=== PATIENT | female | born 1980 | race African-American/Black ===

== ENCOUNTER 2016-11-16 10:23 | Emergency (ER) | payer OTHER ==
[2016-11-16] MEDS ORDERED: NS 0.9% 1000 ML* 1,000 ML IV ONE (11:21)
[2016-11-16] MEDS ORDERED: Ondansetron INJ* 2 MG/ML VIAL IV ONE (11:21)
[2016-11-16 11:47] LABS: Hematocrit 38 % (35-47); Hemoglobin 12.1 g/dl (12.0-16.0); Mean Corpuscular HGB Conc 32 g/dl (31-36); Mean Corpuscular Hemoglobin 27 pg (27-31); Mean Corpuscular Volume 85 fL (80-97); Mean Platelet Volume 7 um3 (7.4-10.4); Red Blood Count 4.44 10^6/ul (4.0-5.4); Red Cell Distribution Width 16 % (10.5-15); White Blood Count 7.6 10^3/ul (3.5-10.8)
[2016-11-16] MEDS ORDERED: oxyCODONE/Acetamin 5/325 MG* TAB PO ONE (11:58)
[2016-11-16 12:10] LABS: Albumin 3.9 g/dL (3.2-5.2); BUN/Creatinine Ratio 16.4 (8-20); Calcium 9.1 mg/dL (8.6-10.3); EGFR African American 161.8 (>60); EGFR Non-African American 125.8 (>60); Potassium 3.8 mmol/L (3.5-5.0); Total Bilirubin 0.3 mg/dL (0.2-1.0); Total Protein 6.9 g/dL (6.4-8.9)
--- NOTE | 2016-11-16 13:15 | RAD ---
Indication: RIGHT upper quadrant pain. Last ate 2 hours ago. Comparison: December 27, 2007 CT. Technique: RIGHT upper quadrant ultrasound. Report: Appropriate direction flow documented in the portal and hepatic veins. 14.9 cm cephalocaudal liver is mildly echogenic consistent with fatty infiltration and corresponding with previous CT finding. No focal hepatic lesions or biliary dilatation. 3.9 mm common bile duct. Suboptimal distention of the gallbladder corresponding with insufficient fasting prior to the exam which likely accounts for mild prominence of the gallbladder wall measuring up to 3.7 mm. Tenderness noted when scanning over the gallbladder fossa. No conspicuous gallbladder stones or pericholecystic fluid. The pancreatic tail is partially obscured due to bowel gas with the visualized pancreas unremarkable. Negative for ascites. Unremarkable 10.7 cm RIGHT kidney. IMPRESSION: 1. Incomplete distention of the gallbladder limits assessment. The patient is tender when scanning over the gallbladder fossa. No conspicuous gallbladder stones or pericholecystic fluid. Correlate with clinical assessment and consider repeat ultrasound after sufficient fasting. 2. Fatty infiltration of the liver.
[2016-11-16] MEDS ORDERED: Lidocaine 2% VISCOUS* 15 ML UDC PO ONE (13:32)
[2016-11-16 13:42] LABS: Urine Bilirubin Negative (Negative); Urine Glucose Negative (Negative); Urine Nitrite Negative (Negative)
[2016-11-16] MEDS ORDERED: Al Hydrox/Mg Hydrox/Simet LIQ* 30 ML UDC ONE (14:30)
[2016-11-16] MEDS ORDERED: Al Hydrox/Mg Hydrox/Simet LIQ* 30 ML UDC PO ONE (14:31)
[2016-11-16] MEDS ORDERED: Metoclopramide IV* 5 MG/ML 2 ML VIAL IV SLOW PU ONE (15:09)
[2016-11-16 17:40] VITALS: BP 99/67
--- NOTE | 2016-12-01 09:26 | ED ---
papa Murcia Timothy, scribed for Davon Kelley MD on 11/16/16 at 1158 . Abdominal Pain/Female - HPI Summary HPI Summary: Darcy Lawson is a 36 yo female presenting to [facility] with 4/10 RUQ abd pain for the past 2 weeks accompanied by nausea and hematemesis as of 11/15/16. Pt is 10 weeks , and prior to this episode has had nausea but no vomiting. She denies black stool or diarrhea. She has chills, but denies fever. Her MHx includes multiple miscarriages, labor, preclampsia, kidney stones, UTI, panic disorder, depression, anxiety, tobacco use. Her OB is in [place]. - History of Current Complaint Chief Complaint: EDNauseaVomitDiarrh Stated Complaint: THROWING UP BLOOD, STOMACH PAIN Time Seen by Provider: 11/16/16 11:15 Hx Obtained From: Patient Hx Last Menstrual Period: 06/28 ?: Yes Onset/Duration: Sudden Onset, Gradual Onset, Lasting Weeks, Still Present Timing: Intermittent Episode Lasting Severity Initially: Moderate Severity Currently: Moderate Pain Intensity: 8 Pain Scale Used: 0-10 Numeric Location: Discrete At: RUQ Radiates: No Aggravating Factor(s): Nothing Alleviating Factor(s): Nothing Associated Signs and Symptoms: Positive: Nausea, Vomiting - hematemesis. Negative: Fever, Diarrhea Allergies/Adverse Reactions: Allergies Allergy/AdvReac Type Severity Reaction Status Date / Time No Known Allergies Allergy Verified 03/15/16 20:57 PMH/Surg Hx/FS Hx/Imm Hx Endocrine/Hematology History: Reports: Hx Anemia - A TEENAGER Denies: Hx Diabetes, Hx Thyroid Disease Cardiovascular History: Denies: Hx Hypertension Respiratory History: Denies: Hx Asthma, Hx Chronic Obstructive Pulmonary Disease (COPD) GI History: Denies: Hx Ulcer History: Reports: Hx Kidney Infection, Hx Kidney Stones - HX IN THE PAST, Other Problems/Disorders - HX OF UTI'S IN THE PAST, MOST RECENT ONE , FINISHED MEDICATION ON 10/16/2014 Sensory History: Reports: Hx Contacts or Glasses - GLASSES, BUT DOES NOT WEAR Denies: Hx Hearing Aid Opthamlomology History: Reports: Hx Contacts or Glasses - GLASSES, BUT DOES NOT WEAR Psychiatric History: Reports: Hx Anxiety, Hx Depression, Hx Panic Disorder, Other Psychiatric Issues/Disorders - depression and suicidal ideation Denies: Hx Eating Disorder, Hx of Violent Episodes Against Others - Cancer History Hx Chemotherapy: No Hx Radiation Therapy: No - Surgical History Surgery Procedure, Year, and Place: 1998 & 2002 DILATION CURETTAGE, [facility] Hx Anesthesia Reactions: Yes - LOCAL - Immunization History Date of Tetanus Vaccine: Unsure Date of Influenza Vaccine: no Infectious Disease History: No Infectious Disease History: Denies: Hx Hepatitis, Hx Human Immunodeficiency Virus (HIV), History Other Infectious Disease, Traveled Outside the [place] in Last 30 Days - Family History Known Family History: Positive: Other - Bipolar disorder and anxiety - biological relations, breast CA Family History: Other is unknown - patient is adopted - Social History Alcohol Use: Rare Substance Use Type: Reports: None Substance Use Comment - Amount & Last Used: last night "smoked my brains out" to cope Hx Tobacco Use: Yes Smoking Status (MU): Heavy Every Day Tobacco Smoker Type: Cigarettes Amount Used/How Often: 1/2 ppd Length of Time of Smoking/Using Tobacco: 17 years Have You Smoked in the Last Year: Yes Review of Systems Positive: Fever. Negative: Chills Eyes: Negative Negative: Erythema ENT: Negative Negative: Sore Throat Cardiovascular: Negative Negative: Chest Pain Respiratory: Negative Negative: Shortness Of Breath, Cough Positive: Abdominal Pain, Vomiting, Nausea. Negative: Diarrhea Genitourinary: Negative Negative: dysuria, hematuria Musculoskeletal: Negative Negative: Myalgia Skin: Negative Negative: Rash Neurological: Negative - no dizziness Psychological: Normal All Other Systems Reviewed And Are Negative: Yes Physical Exam - Summary Physical Exam Summary: Constitutional: Well-developed, Well-nourished, Alert. (-) Distressed Skin: Warm, Dry HENT: Normocephalic; Atraumatic Eyes: Conjunctiva normal Neck: Musculoskeletal ROM normal neck. (-) JVD, (-) Stridor, (-) Tracheal deviation Cardio: Rhythm regular, rate normal, Heart sounds normal; Intact distal pulses; The pedal pulses are 2+ and symmetric. Radial pulses are 2+ and symmetric. (-) Murmur Pulmonary/Chest wall: Effort normal. (-) Respiratory distress, (-) Wheezes, (-) Rales Abd: Soft, (+) RUQ Tenderness, (-) Distension, (-) Guarding, (-) Rebound Musculoskeletal: (-) Edema Lymph: (-) Cervical adenopathy Neuro: Alert, Oriented x3 Psych: Mood and affect Normal Triage Information Reviewed: Yes Vital Signs On Initial Exam: Initial Vitals Temp Pulse Resp BP Pulse Ox 97.4 F 102 18 124/81 100 11/16/16 10:32 11/16/16 10:32 11/16/16 10:32 11/16/16 10:32 11/16/16 10:32 Vital Signs Reviewed: Yes - Russell Coma Scale Coma Scale Total: 15 Diagnostics - Vital Signs Vital Signs Temp Pulse Resp BP Pulse Ox 11/16/16 11:16 97.4 F 102 18 124/81 100 11/16/16 10:32 97.4 F 102 18 124/81 100 - Laboratory Lab Results: Lab Results 11/16/16 Range/Units 11:40 WBC 7.6 (3.5-10.8) 10^3/ul RBC 4.44 (4.0-5.4) 10^6/ul Hgb 12.1 (12.0-16.0) g/dl Hct 38 (35-47) % MCV 85 (80-97) fL MCH 27 (27-31) pg MCHC 32 (31-36) g/dl RDW 16 H (10.5-15) % Plt Count 278 (150-450) 10^3/ul MPV 7 L (7.4-10.4) um3 Neut % (Auto) 73.6 (38-83) % Lymph % (Auto) 18.7 L (25-47) % Morrison % (Auto) 6.0 (1-9) % Eos % (Auto) 1.1 (0-6) % Baso % (Auto) 0.6 (0-2) % Absolute Neuts (auto) 5.6 (1.5-7.7) 10^3/ul Absolute Lymphs (auto) 1.4 (1.0-4.8) 10^3/ul Absolute Monos (auto) 0.5 (0-0.8) 10^3/ul Absolute Eos (auto) 0.1 (0-0.6) 10^3/ul Absolute Basos (auto) 0 (0-0.2) 10^3/ul Absolute Nucleated RBC 0 10^3/ul Nucleated RBC % 0 Result Diagrams: 11/16/16 11:40 11/16/16 11:40 Lab Statement: Any lab studies that have been ordered have been reviewed, and results considered in the medical decision making process. - Ultrasound No standard instances Ultrasound Interpretation: Positive (See Comments) - IMPRESSION: 1. Incomplete distention of the gallbladder limits assessment. The patient is tender when scanning over the gallbladder fossa. No conspicuous gallbladder stones or pericholecystic fluid. Correlate with clinical assessment and consider repeat ultrasound after sufficient fasting. 2. Fatty infiltration of the liver. Ultrasound Interpretation Completed By: Radiologist - abd Re-Evaluation - Re-Evaluation First Eval Re-Evaluation Time: 15:10 Change: Unchanged Comment: Pt is informed of lab and imaging study results. 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 Discussed current course of Tx, Pt is agreeable. Second Eval Re-Evaluation Time: 17:00 Change: Unchanged Comment: Pt has not had any PO intake since administration of the reglan. Third Eval Re-Evaluation Time: 17:28 Change: Improved Comment: Pt is able to tolerate olga damon PO. She is agreeable to be discharged. Abdominal Pain Fem Course/Dx - Course Course Of Treatment: Darcy Lawson is a 36 yo female presenting to [facility] with 2 weeks of RUQ abd pain and nausea, with hematemesis as of 11/15/16. She is 10 weeks . In the ED she received zofran and reglan for her nausea, oxycodone for pain management, and IV fluids, as well as lidocaine in a GI cocktail and Maalox plus. Her abd US suggests limite assessment due to incomplete distension of the gallbladder, but no obvious gallbladder stones. There is fatty infiltration of the liver. After clinical assessment and review of her lab and imaging studies, she will be discharged home with gastritis, biliary colic, and vomiting with appropriate instructions. - Diagnoses Differential Diagnosis: Positive: Gall Bladder Disease, Other - biliary colic Provider Diagnoses: Gastritis, Biliary colic, Vomiting - Provider Notifications Discussed Care Of Patient With: 1519 - Dr. Paredes (surgery) - discussed Pt condition, as well as possibility of biliary colic. After review, he recommended symtpomatic management with follow up in the office. Discharge - Discharge Plan Condition: Stable Disposition: HOME Patient Education Materials: Gastritis (ED), Biliary Colic (ED), Acute Nausea and Vomiting (ED) Referrals: Sudhakar Vargas MD [Primary Care Provider] - 2 Days Terence Paredes MD [Medical Doctor] - 2 Days [facility] [Provider Group] - 2 Days Additional Instructions: Please follow up with Ashwini Alston [facility], and your primary care physician regarding your visit to the emergency department today. Return to the emergency department with any new or recurring symptoms. The documentation as recorded by the papa gray Timothy accurately reflects the service I personally performed and the decisions made by , Davon Kelley MD.
== END 2016-11-16 17:39 | disposition home or self-care (01) ==
LOC: ED 10:23
DX: O26.891 Other specified pregnancy related conditions, first trimester (principal); K29.70 Gastritis, unspecified, without bleeding; K80.50 Calculus of bile duct without cholangitis or cholecystitis without obstruction; R10.11 Right upper quadrant pain; R11.2 Nausea with vomiting, unspecified; F17.210 Nicotine dependence, cigarettes, uncomplicated
CPT/HCPCS: 36415; 76705; 80053; 81003; 85025; 96374; 99283; A9270-GY; J2405

== ENCOUNTER 2017-03-29 18:57 | Emergency (ER) | payer OTHER ==
--- NOTE | 2017-03-29 21:00 | RAD ---
INDICATION: Pain and swelling. COMPARISON: None TECHNIQUE: Duplex interrogation of the Lowerextremity was performed. FINDINGS: Deep veins: The common femoral, great saphenous, profunda femoris, proximal, mid, and distal deep femoral, popliteal, posterior tibial, and peroneal veins are patent. There is normal compressibility, augmentation, and phasic flow. Superficial veins: There are no findings of superficial thrombophlebitis. Popliteal fossa:There is no evidence of a popliteal cyst. Soft tissues:There are no soft tissue abnormalities. IMPRESSION: Normal examination. No evidence of deep venous thrombosis
[2017-03-29 21:18] VITALS: BP 149/92
--- NOTE | 2017-03-30 01:08 | ED ---
Narciso Murcia Angela, scribed for Nevin Fan MD on 03/29/17 at 2202 . Lower Extremity - HPI Summary HPI Summary: Pt is a 36 y/o female, currently 29 weeks , presenting to [facility] c/o sudden onset of left leg swelling this afternoon. Pt reports that she was in an open house for her daughter's school when she noticed swelling on her left leg. She states that this is her fifth . Pt notes that she has had this swelling before with prior pregnancies but not as bad as today. She reports that her leg has alleviated a little since onset. She is a current smoker. Pt is due in June. Her PCP is Dr. Vargas and she sees an OBGYN in [place]. 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 Negative: Redness, Bruising , Fever, Weakness, Dizziness Aggravating Factor(s): Nothing Alleviating Factor(s): Nothing - Allergies/Home Medications Allergies/Adverse Reactions: Allergies Allergy/AdvReac Type Severity Reaction Status Date / Time No Known Allergies Allergy Verified 03/15/16 20:57 PMH/Surg Hx/FS Hx/Imm Hx Endocrine/Hematology History: Reports: Hx Anemia - A TEENAGER Denies: Hx Diabetes, Hx Thyroid Disease Cardiovascular History: Denies: Hx Hypertension Respiratory History: Denies: Hx Asthma, Hx Chronic Obstructive Pulmonary Disease (COPD) GI History: Denies: Hx Ulcer History: Reports: Hx Kidney Infection, Hx Kidney Stones - HX IN THE PAST, Other Problems/Disorders - HX OF UTI'S IN THE PAST, MOST RECENT ONE , FINISHED MEDICATION ON 10/16/2014 Sensory History: Reports: Hx Contacts or Glasses - GLASSES, BUT DOES NOT WEAR Denies: Hx Hearing Aid Opthamlomology History: Reports: Hx Contacts or Glasses - GLASSES, BUT DOES NOT WEAR Psychiatric History: Reports: Hx Anxiety, Hx Depression, Hx Panic Disorder, Other Psychiatric Issues/Disorders - depression and suicidal ideation Denies: Hx Eating Disorder, Hx of Violent Episodes Against Others - Cancer History Hx Chemotherapy: No Hx Radiation Therapy: No - Surgical History Surgery Procedure, Year, and Place: 1998 & 2002 DILATION CURETTAGE, [facility] Hx Anesthesia Reactions: Yes - LOCAL - Immunization History Date of Tetanus Vaccine: Unsure Date of Influenza Vaccine: no Infectious Disease History: No Infectious Disease History: Denies: Hx Hepatitis, Hx Human Immunodeficiency Virus (HIV), History Other Infectious Disease, Traveled Outside the [place] in Last 30 Days - Family History Known Family History: Positive: Diabetes - mother, Other - Bipolar disorder and anxiety - biological relations, breast [place] Family History: Other is unknown - patient is adopted - Social History Alcohol Use: Rare Substance Use Type: Reports: None Substance Use Comment - Amount & Last Used: last night "smoked my brains out" to cope Hx Tobacco Use: Yes Smoking Status (MU): Heavy Every Day Tobacco Smoker Type: Cigarettes Amount Used/How Often: 1/2 ppd Length of Time of Smoking/Using Tobacco: 17 years Have You Smoked in the Last Year: Yes Review of Systems Negative: Fever, Chills Eyes: Negative ENT: Negative Cardiovascular: Negative Negative: Shortness Of Breath, Cough Negative: Abdominal Pain, Vomiting, Diarrhea, Nausea Genitourinary: Negative Positive: Edema - left leg Neurological: Negative All Other Systems Reviewed And Are Negative: Yes Physical Exam Triage Information Reviewed: Yes Vital Signs On Initial Exam: Initial Vitals Temp Pulse Resp BP Pulse Ox 98.6 F 104 20 156/107 97 03/29/17 19:20 03/29/17 19:20 03/29/17 19:20 03/29/17 19:20 03/29/17 19:20 Vital Signs Reviewed: Yes Appearance: Positive: Well-Appearing, No Pain Distress Skin: Positive: Warm, Skin Color Reflects Adequate Perfusion, Dry Eyes: Positive: EOMI, MISHA ENT: Positive: Pharynx normal, TMs normal Neck: Positive: Supple, Nontender Respiratory/Lung Sounds: Positive: Clear to Auscultation, Breath Sounds Present. Negative: Rales, Rhonchi, Wheezes Cardiovascular: Positive: RRR. Negative: Murmur, Rub, Other - gallops Abdomen Description: Positive: Nontender, Soft, Other: - Pt is gravid. Negative : Distended, Guarding Bowel Sounds: Positive: Present Musculoskeletal: Positive: Strength/ROM Intact, Edema Left - normal pulse. Negative: Edema Right Neurological: Positive: Sensory/Motor Intact, Alert, Oriented to Person Place, Time, CN Intact II-III, Other - Pt is neurovascular intact Psychiatric: Positive: Affect/Mood Appropriate - Banks Coma Scale Coma Scale Total: 15 Diagnostics - Vital Signs Vital Signs Temp Pulse Resp BP Pulse Ox 03/29/17 21:16 98.5 F 98 16 149/92 98 03/29/17 19:23 98.6 F 104 20 156/107 97 03/29/17 19:20 98.6 F 104 20 156/107 97 - Laboratory Lab Statement: Any lab studies that have been ordered have been reviewed, and results considered in the medical decision making process. - Ultrasound No standard instances Ultrasound Interpretation: No Acute Changes - VL Lower Extremity Left IMPRESSION : Normal examination. No evidence of deep venous thrombosis. ED physician has reviewed this radiology report and agrees. Ultrasound Interpretation Completed By: Radiologist Lower Extremity Course/Dx - Course Course Of Treatment: 36 female 22 weeks with sudden onset of left leg swelling no sob or cp, with a neg doppler study, pt had full resolution of symptoms by the time she was evaluated and there was no erythema and she was neurovasculalry intact. It was discussed with pt that fetus likely put some pressure on the ivc which resulted in the edema - Diagnoses Provider Diagnoses: edema, now resolved Discharge - Discharge Plan Condition: Stable Disposition: HOME Patient Education Materials: Leg Edema (ED) Referrals: Sudhakar Vargas MD [Primary Care Provider] - The documentation as recorded by the Narciso gray Angela accurately reflects the service I personally performed and the decisions made by Meng allen Justine, MD.
== END 2017-03-29 22:16 | disposition home or self-care (01) ==
LOC: ED 18:57
DX: O12.03 Gestational edema, third trimester (principal); Z3A.29 29 weeks gestation of pregnancy; O99.333 Smoking (tobacco) complicating pregnancy, third trimester; F17.210 Nicotine dependence, cigarettes, uncomplicated
CPT/HCPCS: 99282

== ENCOUNTER → 2017-11-02 07:11 | Day surgery (SDC) | payer MEDICAID, OTHER ==
[~2017-11-02 07:11] MED LIST: Acetaminophen TAB* 325 MG PO PRN; Buffered Lidocaine 0.9% SYRIN* 5 ML/SYR SYRINGE INTRADERM ONE; Buffered Lidocaine 0.9% SYRIN* 5 ML/SYR SYRINGE ONE; Bupivacaine 0.25% SDV* 30 ML ONE; Famotidine IV* 10 MG/ML 2 ML (20 mg) IV ONE; HYDROmorphone INJ* 1 MG/ML CARPUJECT SYRINGE IV PRN; Ketorolac INJ* 30 MG/ML 1 ML VIAL ONE; Lidocaine 2% PF * 5 ML VIAL ONE; Midazolam* 1 MG/ML 2 ML VIAL (2 MG) ONE; Naloxone* 0.4 MG/ML 1 ML VIAL IV PRN; Ondansetron INJ* 2 MG/ML VIAL ONE; PROCHLORPERAZINE INJ 5 MG/ML 2 ML VIAL IV PRN; Propofol* 10 MG/ML 20 ML BTL IV PUSH ONE; Rocuronium* 10 MG/ML VIAL ONE; Scopolamine 1.5 mg* PATCH ONE; Scopolamine 1.5 mg* PATCH TRANSDERM PRN; Scopolamine PATCH Remove* 1 NOTE MISC PATCH OFF ONE; Sugammadex * 200 MG/2 ML VIAL IV PUSH ONE; fentaNYL* 50 MCG/ML 2 ML VIAL (100 MCG VIAL) IV PRN; fentaNYL* 50 MCG/ML 2 ML VIAL (100 MCG VIAL) ONE; oxyCODONE TAB* 5 MG TAB ONE; oxyCODONE/Acetamin 5/325 MG* TAB PO PRN
[2017-11-02] MEDS: oxyCODONE TAB* 5 MG TAB PO PRN ×2 (09:27→09:28)
[2017-11-02 10:12] VITALS: BP 151/94
--- NOTE | 2017-11-02 11:12 | OP ---
Amended report to enter date of operation. OPERATIVE REPORT: DATE OF OPERATION: 11/02/17 DATE OF : 82 SURGEON: Henry Soria MD SPEED BELT SANDER: None. ANESTHESIA: General endotracheal tube. PRE-OP DIAGNOSIS: Desires sterilization. POST-OP DIAGNOSIS: Desires sterilization. OPERATIVE PROCEDURE: Laparoscopic bilateral tubal ligation. ESTIMATED BLOOD LOSS: Minimal. SPECIMEN: None. FINDINGS: On exam under anesthesia, cervix, vagina, vulva appeared normal. On laparoscopy, anterior bladder flap appeared normal, the cul-de-sac was not well visualized. Both the right fallopian tube and ovary were free and mobile and appeared normal. Left fallopian tube was scarred to the cul-de-sac. Liver surface was smooth. DESCRIPTION OF PROCEDURE: The patient identified, procedure identified as laparoscopic bilateral tubal ligation.. The patient was taken to the operating room and prepped and draped in the usual fashion in the dorsal lithotomy position under general anesthesia. A small infraumbilical incision was made and Veress needle was inserted through this. The abdomen was insufflated to 50 mmHg. The Veress needle was removed and then trocar was inserted. Trocar was removed from the sheath and laparoscope was inserted. The above findings were noted. The second incision was made 2 cm above the pubic symphysis in the midline and a second trocar was inserted under direct visualization. The right fallopian tube was grasped in its midportion, followed out to its fimbriated ends and fulgurated x3. The same procedure was carried out on the left and the fimbriated ends could not be seen well, though adequate visualization of the fallopian tube over the ovary made identification reasonable. That side was cauterized closer to the uterus in order to avoid the bowel and the fimbria could not be totally visualized. Good hemostasis was verified. All instruments removed from the abdomen. The abdomen was deflated of CO2. The skin was closed using skin glue. The sponge and instrument were removed from the vagina. All sponge and instruments were correct and the patient returned to recovery room in stable condition. [id number]/CPS #: [id number] MTDD
== END | disposition home or self-care (01) ==
LOC: OR 07:11
PROVIDERS: ATTEND Obstetrics & Gynecology
DX: Z30.2 Encounter for sterilization (principal); F17.210 Nicotine dependence, cigarettes, uncomplicated; F41.8 Other specified anxiety disorders
CPT/HCPCS: 36415; 81025; 86703; A9270-GY; J1885; J2250; J2405; J2704; J3010

== ENCOUNTER 2018-01-17 23:36 | Emergency (ER) | payer OTHER ==
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
[2018-01-18 02:17] VITALS: BP 122/70
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
--- NOTE | 2018-01-18 07:30 | RAD ---
INDICATION: Consult. Possible chest injury. COMPARISON: None TECHNIQUE: Axial source images were obtained from the thoracic inlet to the hemidiaphragms. Coronal and sagittal reconstructed images were acquired. The visualized neck to include the thyroid appear normal. Chest wall: There are no acute abnormalities of the bony thorax or chest wall. There is no supraclavicular, infraclavicular, or axillary lymphadenopathy. Lungs : There are no pulmonary parenchymal masses or infiltrates. There is minor gravity dependent atelectasis. There is no pneumothorax. The pulmonary interstitium appears normal. There are no endobronchial lesions. Cardiomediastinal structures: The heart is normal in size. There is no pericardial effusion. There is no evidence of aortic aneurysm or dissection. There is no mediastinal hematoma. The pulmonary vessels appear normal. There is no mediastinal or hilar adenopathy. The esophagus appears normal. Pleura : There are no pleural-based masses or effusions. Other: There are no acute or significant CT findings of the visualized upper abdomen. IMPRESSION: NO CT EVIDENCE OF TRAUMATIC INJURY TO THE CHEST.
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
== END 2018-01-18 02:14 | disposition home or self-care (01) ==
LOC: ED 23:36
DX: S09.93XA Unspecified injury of face, initial encounter (principal); M54.2 Cervicalgia; R51 Headache; F17.210 Nicotine dependence, cigarettes, uncomplicated; R07.9 Chest pain, unspecified; R06.02 Shortness of breath; R07.81 Pleurodynia; Y09 Assault by unspecified means; Y92.9 Unspecified place or not applicable
CPT/HCPCS: 70486; 71250; 72125; 99282

== ENCOUNTER 2018-04-22 15:46 | Emergency (ER) | payer OTHER ==
[2018-04-22 16:11] VITALS: BP 135/87
--- NOTE | 2018-04-23 12:51 | UC ---
- Progress Note Progress Note: LWBS. NO IMAGING Discharge - Sign-Out/Discharge Documenting (check all that apply): Post-Discharge Follow Up All imaging exams completed and their final reports reviewed: No Studies - Discharge Plan Disposition: LEFT WITHOUT BEING SEEN Referrals: Sudhakar Vargas MD [Primary Care Provider] - - Billing Disposition and Condition Disposition: Left Without Being Seen
== END 2018-04-22 16:14 | disposition left against medical advice (07) ==
LOC: UCEAST 15:46
DX: J98.9 Respiratory disorder, unspecified (principal); Z53.21 Procedure and treatment not carried out due to patient leaving prior to being seen by health care provider

== ENCOUNTER 2018-10-22 10:12 | Emergency (ER) | payer OTHER ==
--- OUTSIDE RECORDS SUMMARY | 2018-10-22 10:20 | XMS REPORT | Continuity of Care Document ---
:1980 External Reference #:[id number] Author Name Henry Soria M.D. Address [address] [place] [address] Care Team Providers Name Role Phone Samantha Vargas M.D. Primary Care Physician Unavailable Payers Date Identification Numbers Payment Provider Subscriber Policy Number: [id number] [facility] Margret Fairchild PayID: [id number] [address] [address] [place] [address] Advance Directives Description No Information Available Problems Date Description Provider Status Onset: 08/21/2013 Depressive disorder Juany Cervantes CNM Active Onset: 08/21/2013 Anxiety state Juany Cervantes CNM Active Onset: 08/21/2013 Tobacco user Juany Cervantes CNM Active Family History Date Family Member(s) Observation Comments First Son A&W First Son ADHD (Attention Deficit/Hyperactivity Disorder) Second Son Hirshsprung's Disease From . Followed by Specialist in [place] Second Son ADHD (Attention Deficit/Hyperactivity Disorder) Third Son A&W Third Son ADHD (Attention Deficit/Hyperactivity Disorder) First Daughter A&W Second Daughter A&W Respiratory issues related to premature . 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 Cigarette Use Regularly smokes cigarettes Alcohol Denies alcohol use Tobacco Use Start: Unknown Patient is a current smoker, smokes every day Drug Use Denies drug use Smoking Status Reviewed: 08/28/18 Patient is a current smoker, smokes every day Daily Caffeine occ soda Exercise Type/Frequency Exercises sporadically Current Seat Belt/Car Seat Always uses a seat belt Currently Active The patient is currently sexually active Contraceptive Methods Current methods of control used include tubal ligation Allergies, Adverse Reactions, Alerts Description No Known Drug Allergies Medications Medication Date Status Form Strength Qnty SIG Indications Ordering Provider Norethindrone 10/10/ Active Tablets 5mg 60tabs 1 by Henry Rojas 2019 mouth Gelber, every day M.D. Lexapro / Active Tablets 20mg 1 po qd Unknown 0000 Adderall / Active Tablets 20mg 1 po bid Unknown 0000 Xanax / Active Tablets 1mg 1 po qd Unknown 0000 Oxycodone-Acetam 07/18/ Hx Tablets 5-325mg 10tabs 1 by [id number] Henry Ozuna inophen 2017 - mouth Gelber, 11/13/ q4hr M.D. 2017 Ibuprofen 07/18/ Hx Tablets 600mg 30tabs take one [email or web address] Henry Ozuna 2018 - tab by Gelber, 11/13/ mouth M.D. 2017 every 6 hours as needed pain Nuvaring 06/14/ Hx Ring 0.12-0.015 1units insert as Mahrijessica 2017 - mg/24HR directed Billy 11/13/ CNM 2018 Diclegis 11/15/ Hx Tablets DR 10-10mg 60tabs take 2 Michelle 2017 - tablets Rosalind 11/15/ by mouth LM 2016 at bedtime, may add 1 tablet in morning Metoclopramide 11/15/ Hx Tablets 10mg 30tabs one Michelle HCL 2016 - tablet by Rosalind, 06/14/ mouth LM 2016 every 8 hours as needed for nausea. Aspirin Adult 10/20/ Hx Tablets DR 81mg 30tabs 1 tablet Becky Low Strength 2017 - po daily Almas, 06/14/ CNM 2016 Zatean-PN Dha 10/20/ Hx Capsules 27-0.6-0.4 30caps 1 by Becky 2017 - -300mg mouth Alams, 06/14/ every day CNM 2016 Escitalopram 10/17/ Hx Tablets 5mg 14tabs 1 PO qd Karen Oxalate 2013 - Matheus, 03/16/ 2016 Ciprofloxacin 10/17/ Hx Tablets 500mg 14tabs 1 po bid Mahrie HCL 2014 - for 7 Cervantes, 03/16/ days CNM 2015 Doxylamine 09/17/ Hx Powder Henry A. Succinate 2013 - Gelber, M.D. 2013 Unisom 09/17/ Hx Tablets 25mg Henry A. 2013 - Gelber, M.D. 2013 Doxylamine 09/17/ Hx Powder 25mg 30unit 1 PO qd Henry A. Succinate 2013 - s Gelber, M.D. 2013 Unisom 09/17/ Hx Tablets 25mg 90tabs 1 PO QHS Henry A. Doxylamine 2013 - prn Gelber, M.D. 2015 Multi 09/17/ Hx Capsules 27-0.8-228 30caps 1 po qd Becka +Dha 2013 - mg Uriel 03/16/ , CNM 2015 Keflex 08/24/ Hx Capsules 500mg 14caps 1 po bid Mahrie 2013 - x 7 days Cervantes, 09/01/ CNM 2013 Zithromax Z-Edmond 10/24/ Hx Tablets 250mg 1Pack As Rosana 2006 - directed Capista, 08/24/ C.N.M 2013 Plus 10/24/ Hx 100uni 1 PO qd Rosana 2005 - ts Capista, 09/17/ C.N.M 2013 07/26/ Hx Tablets 30tabs 1 PO qd Lang O, Vitamins 2005 - C.N.M. 2013 Provera 11/11/ Hx Tablets 10mg 5tabs 1 PO qd Beal 2004 - Rivera 11/16/ , CNM 2004 Keflex / Hx Unknown 0000 - 2013 PNV-Dha / Hx Capsules 27-0.6-0.4 1 by Unknown 0000 - -300mg mouth 10/20/ every day 2016 Motrin Ib / Hx Unknown 0000 - 2017 Immunizations Description No Information Available Vital Signs Date Vital Result Comment 10/10/2018 11:08am BP Systolic 126 mmHg BP Diastolic 82 mmHg Height 64 inches 5'4" Weight 153.00 lb BMI (Body Mass Index) 26.3 kg/m2 Last Menstrual Period [id number] 12 Parity 5 08/28/2018 2:05pm BP Systolic 124 mmHg BP Diastolic 72 mmHg Height 64 inches 5'4" Weight 150.00 lb BMI (Body Mass Index) 25.7 kg/m2 Last Menstrual Period 6531365 12 Parity 5 11/30/2017 12:56pm BP Systolic 108 mmHg BP Diastolic 70 mmHg Body Temperature 98.5 F Height 64 inches 5'4" Weight 150.00 lb BMI (Body Mass Index) 25.7 kg/m2 Last Menstrual Period 6249392 12 Parity 5 11/13/2017 12:56pm BP Systolic 136 mmHg BP Diastolic 86 mmHg Body Temperature 98.5 F Height 64 inches 5'4" Weight 149.00 lb BMI (Body Mass Index) 25.6 kg/m2 Last Menstrual Period 0592834 12 Parity 5 07/18/2017 1:04pm BP Systolic 126 mmHg BP Diastolic 78 mmHg Height 64 inches 5'4" Weight 150.00 lb BMI (Body Mass Index) 25.7 kg/m2 Last Menstrual Period 5931155 12 Parity 4 06/14/2017 2:17pm BP Systolic 122 mmHg BP Diastolic 76 mmHg Height 64 inches 5'4" Weight 160.00 lb BMI (Body Mass Index) 27.5 kg/m2 Last Menstrual Period 8943119 12 Parity 4 10/20/2016 1:36pm BP Systolic 128 mmHg BP Diastolic 70 mmHg Height 64 inches 5'4" Weight 137.00 lb BMI (Body Mass Index) 23.5 kg/m2 Last Menstrual Period 2557709 12 Parity 3 03/17/2016 2:10pm BP Systolic 134 mmHg BP Diastolic 82 mmHg Height 64 inches 5'4" Weight 132.00 lb BMI (Body Mass Index) 22.7 kg/m2 Last Menstrual Period 2270025 08/21/2013 1:47pm BP Systolic 120 mmHg BP Diastolic 68 mmHg Height 62.5 inches 5'2.50" Weight 150.00 lb BMI (Body Mass Index) 27.0 kg/m2 Last Menstrual Period 4361375 8 Parity 3 03/07/2006 10:39am BP Systolic 126 mmHg BP Diastolic 78 mmHg Weight 166.00 lb Results Test Date Facility Test Result H/L Range Note Laboratory test [facility] Surgical <pending> finding [address] [place] [address] Pathology [phone] Urine Culture And [facility] Urine Culture SEE RESULT 1 Sensitivities [address] [place] [address] BELOW [phone] Laboratory test [facility] Cytology SEE RESULT 2 finding 9 [place] [address] BELOW [phone] GC/Chlamydia Dna [facility] Chlamydia Negative Negative Probe 9 [place] [address] trachomatis Rna [phone] Neisseria gonorrhoeae (GC) Rna Negative Negative PNL No 10/20/2016 [facility] Rubella Screen Immune IU/ mL N Immune 3 [place] [address] [phone] Hemoglobin A1c 5.6 % N Less than 6.0 4 Hepatitis B Surface Ag Nonreactive N Nonreactive 5 Syphillis Igg W/Reflex RPR Nonreactive N Nonreactive 6 Urine Culture And 10/20/2016 [facility] Urine Culture SEE RESULT 7 [place] [address] BELOW [phone] CBC With No Diff 10/20/2016 [facility] White Blood 9.6 10^3/uL N 3.5-10 [place] [address] Count .8 [phone] Red Blood Count 4.49 10^6/uL N 4.0-5.4 Hemoglobin 12.5 g/dL N 12.0-16.0 Hematocrit 39 % N 35-47 Mean Corpuscular Volume 86 fL N 80-97 Mean Corpuscular Hemoglobin 28 pg N 27-31 Mean Corpuscular HGB Conc 32 g/dL N 31-36 Red Cell Distribution Width 16 % High 10.5-15 Platelet Count 314 10^3/uL N 150-450 Mean Platelet Volume 8 um3 N 7.4-10.4 Type And Screen 10/20/2016 [facility] [place] [address] [phone] Patient Blood Type A Positive N HIV 1/2 AB 10/20/2016 [facility] HIV 1 2 Nonreactive N Nonreactive 8 [place] [address] Antibody [phone] Laboratory test 10/20/2016 [facility] TSH 1.01 mcIU/mL N 0.34- 5.60 9 [place] [address] [phone] T4 Free 0.77 ng/dL N 0.61-1.12 10 Lead 10/20/2016 [facility] Lead <1.0 N 0.0-4.9 11 [place] [address] g/dL [phone] Laboratory test 04/04/2016 [facility] HCG 117.10 N 12 finding [place] [address] mIU/mL [phone] Laboratory test 03/28/2016 [facility] HCG 206.38 N 13 finding [place] [address] mIU/mL [phone] Laboratory test 03/23/2016 [facility] HCG 291.34 N 14 finding [place] [address] mIU/mL [phone] Laboratory test 10/16/2013 [facility] RUN DATE: 15 finding [place] [address] Pathology 10/20/ [phone] <SEE NOTE> CBC With No 09/16/2013 [facility] White Blood 11.7 High 4.8- 10.8 [place] [address] Count 10^3/uL [phone] Red Blood Count 3.97 10^6/uL Low 4.0-5.4 Hemoglobin 10.6 g/dL Low 12.0-16.0 Hematocrit 34 % Low 35-47 Mean Corpuscular Volume 84 fL 80-97 Mean Corpuscular Hemoglobin 27 pg 27-31 Mean Corpuscular HGB Conc 32 g/dL 31-36 Red Cell Distribution Width 14 % 10.5-15 Platelet Count 239 10^3/uL 150-450 Mean Platelet Volume 8 um3 7.4-10.4 Type And Screen 09/16/2013 [facility] [place] [address] [phone] Antibody Screen NEGATIVE Urinalysis W/Microscopic 09/15/2013 [facility] [place] [address] [phone] Urine Appearance Clear Urine Specific [place] 1.020 1.010-1.030 Urine Esterase 1+ Abnormal Negative Urine Nitrate Positive Abnormal Negative Urine Urobilinogen Negative E.U./dL Negative Urine Protein 1+ mg/dL Abnormal Negative Urine pH 6.0 5-9 Urine Blood Negative Negative Urine Ketones Negative mg/dL Negative Urine Bilirubin Negative Negative Urine Glucose Negative mg/dL Negative Urine WBC 2+ (>10-30 /hpf) None Seen 16 Urine RBC None Seen None Seen Urine Epithelial Cells 2+ Squamous /hpf None Seen Bacteria Urine 3+ None Seen Urine Culture And 09/15/2013 [facility] Urine Culture (SEE NOTE ) 17 [place] [address] [phone] Quad Screen 08/21/2013 [facility] ALENA Interpretation (SEE NOTE) 18 Risk For NTD (Osb) LESS THAN 1:5000 19 Risk For Down Based On Age 1:528 Risk For Down Based On SCR 1:507 <1:270 Trisomy 18 Risk Based On SCR 1:298 <1:100 Afp,Serum 28.0 NG/ML Adjusted Mom 0.79 20 HCG,Serum 16.800 IU/mL Mom 0.66 Estriol,Free 0.28 NG/ML Mom 0.46 Inhibin A 263 pg/mL Mom 1.45 Comment (SEE NOTE) 21 Date Of 1980 KATJA 02/04/2014 KATJA Determined By [facility] Gestational Age 16.1 WEEKS Weight 150 LBS Race OTHER=O Insulin Dependent Diabetic NO Repeat Sample NO Number Of Fetuses 1 History Of NTD NO Date Of Draw 08/21/2013 [facility] (SEE NOTE) 22 Urine Culture And 08/21/2013 [facility] Urine Culture (SEE NOTE ) 23 [place] [address] [phone] HPV High Risk 08/21/2013 [facility] Human See Comment 24 [place] [address] Papillomavirus [phone] Source HPV High Risk Type 16, PCR Negative Negative HPV High Risk Type 18, PCR Negative Negative HPV Other Risk types Negative Negative 25 Laboratory test 08/21/2013 [facility] Cytology RUN DATE: 26 [place] [address] <SEE [phone] NOTE> Parvovirus B19 08/21/2013 [facility] Parvovirus B19 0.1 index <0.9 27 AB (Igg,M) AB (Igm) Parvovirus B19 AB (Igg) 1.2 index High <0.9 Toxoplasma AB(Igg,M),Eia 08/21/2013 [facility] Toxoplasma Igg AB 2.75 INDEX High 28 Toxoplasma Igm AB EQUIVOCAL Interpretation (SEE NOTE) 29 PNL No 08/21/2013 [facility] Rubella Screen [place] [address] [phone] Hemoglobin A1c 5.6 % Less than 6.0 30 Hepatitis B Surface Antigen Nonreactive Nonreactive 31 RPR 08/21/2013 [facility] Syphilis [place] [address] [phone] RPR Nonreactive Nonreactive RPR Titer TNP Pediatric/Maternal YES CBC With No 08/21/2013 [facility] White Blood 11.2 10^3/uL High 4.8-10.8 [place] [address] Count [phone] Red Blood Count 4.15 10^6/uL 4.0-5.4 Hemoglobin 11.6 g/dL Low 12.0-16.0 Hematocrit 37 % 35-47 Mean Corpuscular Volume 88 fL 80-97 Mean Corpuscular Hemoglobin 28 pg 27-31 Mean Corpuscular HGB Conc 32 g/dL 31-36 Red Cell Distribution Width 14 % 10.5-15 Platelet Count 321 10^3/uL 150-450 Mean Platelet Volume 8 um3 7.4-10.4 GC/Chlamydia 08/21/2013 [facility] GC/Chlamydia (SEE NOTE) 32 [place] [address] Rna [phone] HIV 1/2 AB 08/21/2013 [facility] HIV 1 2 Nonreactive Nonreactive 33 [place] [address] Antibody [phone] Type And 08/21/2013 [facility] Patient [place] [address] Type [phone] Antibody Screen NEGATIVE Comp Metabolic 01/19/2006 [facility] One Over Creatinine 1.42 34 [place] [address] [phone] Anion Gap 8.0 mmol/L 2-11 35 Albumin/Globulin Ratio 0.7 Low 1-3 Albumin 2.1 GM/DL Low 3.6-5.4 Alkaline Phosphatase 107 U/L 30-110 Alt (SGPT) 17 U/L 14-54 Ast (Sgot) 21 U/L 12-42 BUN 9 mg/dL 6-24 Calcium 8.5 mg/dL Low 8.7-10.2 Chloride 109 mmol/L 101-111 Co2 (Carbon Dioxide) 22.0 mmol/L 22-32 Globulin 2.9 GM/DL 2-4 Glucose 121 mg/dL High 70-105 Potassium 3.8 mmol/L 3.5-5.0 Sodium 139 mmol/L 135-145 Bilirubin Total 0.2 mg/dL Low 0.4-1.5 Total Protein 5.0 GM/DL Low 6.2-8.1 BUN/Creatinine Ratio 12.9 8-20 Creatinine 0.7 mg/dL 0.5-1.4 Laboratory test 01/19/2006 [facility] Uric Acid 6.3 mg/dL 2.6 -7.2 [place] [address] [phone] CBC With 01/19/2006 [facility] White Blood 10.4 CUMM 4.8- 10.8 [place] [address] Count [phone] Abs Basophils 0 0-0.2 Abs Eosinophils 0.1 0-0.6 Absolute Neutrophil Count 7.9 High 1.5-7.7 Abs Lymphs 1.9 1.0-4.8 Abs Mononuclear 0.4 0-0.8 Basophil % 0.4 % 0-2 Hematocrit 35 % 35-47 Definitive Flag 1 36 Hemoglobin 11.7 g/dL Low 12.0-16.0 Eosinophil % 1.2 % 0-6 Gran % 75.5 % 38-83 Lymph % 18.7 % Low 20-45 Mean Corpuscular HGB Cone 34 g/dL 32-36 Mean Corpuscular Hemoglob 28 pg 27-31 Mean Corpuscular Volume 82 um3 79-97 Mean Platelet Volume 8.5 um3 7.4-10.4 Mononuclear % 4.2 % 1-9 Platelet Count 328 CUMM 150-450 Red Cell Count 4.22 CUMM 4.2-5.4 Redcell Distribution WDTH 16 % High 10.5-15 Type And Screen 01/19/2006 [facility] Patient Blood Type A POSITIVE [place], [place] [address] [phone] Antibody Screen NEGATIVE Total Protein 24HR 01/19/[address] [facility] Total Protein RD 270 mg /[place] [address] Urine OB Pat [phone] Urine Total Protein/24HR 4050 MG/24HR High 0-165 Creatinine 01/19/2006 [facility] Creatinine Random 77.9 mg/[place] [address] Urine [phone] Serum Creatinine/Creat CL 0.7 mg/dL 0.5-1.4 Creat Clearance 116 mL/min 80-125 Hours Of Collection 24 HR 24- Urine Volume Measurement 1500 ML Laboratory test finding 12/13/2005 [facility] 3HR Glucose 122 mg /dL 37 [place] [address] [phone] 2HR Glucose 141 mg/dL 38 1HR Glucose 143 mg/dL 39 Fasting Glucose 79 mg/dL 70-110 Vad 12/08/2005 [facility] Vad Final NONREACTIVE Nonreactive [address] [place] [address] [phone] Vad Form Received YES Nonreactive Laboratory 09/26/2005 [facility] TSH 0.88 MIU/ML 0.34-5.60 [place] [address] [phone] Laboratory 07/26/2005 [facility] Hepatitis B NEGATIVE [place] [address] Surface Ag [phone] RPR 07/26/2005 [facility] [place] [address] REACTIVE [phone] Hemogram 07/26/2005 [facility] White Blood 12.5 CUMM High 4.8- 10.8 [place] [address] Count [phone] Hematocrit 40 % 35-47 Hemoglobin 13.4 g/dL 12.0-16.0 Mean Corpuscular HGB Cone 34 g/dL 32-36 Mean Corpuscular Hemoglob 29 pg 27-31 Mean Corpuscular Volume 86 um3 79-97 Platelet Count 411 CUMM 150-450 Red Cell Count 4.63 CUMM 4.2-5.4 GC/Chlamydia Dna 07/26/2005 [facility] Chlamydia By NEGATIVE Negative 41 [place] [address] Dna Probe [phone] GC By Dna Probe NEGATIVE Negative 42 Laboratory test 07/26/2005 [facility] Urine Culture NG [address] [place] [address] Sensitivi [phone] Laboratory test 08/05/2003 [facility] TSH 0.79 0.34-5 [place] [address] MIU/ML .60 [phone] Free Thyroxine 0.73 ng/dL 0.58-1.64 1 SEE RESULT BELOW Name: MARGRET AFIRCHILD : [address]: Henry Soria MD Acct: [id number] Unit: [id number] AGE: 38 Location: [facility] Re08/28/18 SEX: F Status: REG REF SPEC: [id number] PABLO: 08/28/18-[address]: Henry Soria MD REQ: [id number] RECD: 08/29/18-4363 STATUS: COMP _ SOURCE: URINE SPDESC: ORDERED: Urine Culture COMMENTS: [id number] Procedure Result Reported Site Urine Culture Final 08/30/18- 1222 ML No Growth (<1,000 CFU/mL) * ML - Main Lab . END OF REPORT DEPARTMENT OF PATHOLOGY, [address] [place] [address] Jake Sanchez M.D. Director [facility] # [id number] 2 SEE RESULT BELOW Name: MARGRET FAIRCHILD : [address]: Henry Soria MD Acct: [id number] Unit: [id number] AGE: 38 Location: [facility] Re08/28/18 SEX: F Status: REG REF SPEC: [id number] PABLO: 08/28/18-[address] [facility] [address]: Henry Soria MD REQ: [id number] RECD: 08/29/181159 STATUS: LISA BEARDEN DR: Sudhakar Vargas MD _ ORDERED: TP IMAGE ANALYS, HPV/Thin Prep COMMENTS: [id number] EPITHELIAL CELL ABNORMALITIES Atypical squamous cells of undetermined significance Date Time Test Result Flag (u) Normal Range 08/28/18 1506 @ HPV RNA POSITIVE An Negative @ @ The high-risk HPV types detected by the assay include: 16, @ 18, 31, 33, 35, 39, 45, 51, 52, 56, 58, 59, 66, and 68. A. Ectocervical/Endocervical Specimen Adequacy: Satisfactory of evaluation Transformation zone component identified Patient Information: HPV: High risk HPV RNA testing regardless of pap results. Actual Specimen Date: 08/28/18 Last Menstrual Date: 07/17/18 Date of Last Specimen: 08/21/13 Signed by and Reported on: Natalie Ricardo MD 09/03/18 4890 This Pap test was evaluated with the assistance of the ThinPrep Test Imaging System. Due to cytologic findings at the assembler equipment microscope, comprehensive manual rescreening by a Plant Science Professor may be required. The Pap Smear is a screening test designed to aid in the detection of premalignant and malignant conditions of the uterine cervix. It is not a diagnostic procedure and should not be used as the sole means of detecting cervical cancer. Both false- positive and false- negative reports do occur. Depending on your risk status, a Pap smear should be obtained and evaluated every 1-3 years. END OF REPORT DEPARTMENT OF PATHOLOGY, [address] [place] [address] Jake Sanchez M.D. Director [facility] # [id number] 3 [id number] Therapeutic target for the treatment of diabetes Mellitus patients is <7% HBA1C, and in selective patients <6.0%.Please refer to [place] [employer] Diabetic care guidelines for further information. 5 [id number] Warning: A positive result is not useful for establishing a diagnosis of syphilis. In most situations, such a result may reflect a prior treated infection; a negative result can exclude a diagnosis of syphilis except for incubating or early primary disease. 7 SEE RESULT BELOW Name: GURINDERISRAELMARGRET A : [address]: Katie Coburn [facility] Acct: [id number] Unit: [id number] AGE: 36 Location: [facility] Re10/20/16 SEX: F Status: REG REF SPEC: [id number] PABLO: 10/20/16-[address]: Katie Coburn [facility] REQ: [id number] RECD: 10/20/16 STATUS: COMP _ SOURCE: URINE SPDESC: ORDERED: Urine Culture COMMENTS: [id number] Urine Source: Random Procedure Result Reported Site Urine Culture Final 10/22/16- 08 ML No Growth (<1,000 CFU/mL) * ML - MAIN LAB ([facility]) . END OF REPORT * ML=Testing performed at Main Lab DEPARTMENT OF PATHOLOGY, [address] [place] [address] Jkae Sanchez M.D. Director [facility] # [id number] 8 It is recognized that currently available assays for the detection of antibodies to HIV-1 and/or HIV-2 may not detect all infected individuals. HIV antibodies may be undetectable in some stages of the infection and in some clinical conditions. The performance of this assay has not been established for populations of infants or children. Assayed by Chemiluminescence Microparticle Immunoassay on the Siemens Advia Centaur CP. Values obtained with different methods or kits cannot be used interchangeably.The diagnostic specificity of the ADVIA Centaur 1/O/2 Enhanced assay in the low risk population was 99.90% (6052/6058) with a 95% confidence interval of 99.78 to 99.96%. 9 [id number] ADDITIONAL INFORMATION Testing performed by Inductively Coupled Plasma-Mass Spectrometry (ICP-MS). This test was developed and its performance characteristics determined by [facility] in a manner consistent with CLIA requirements. This test has not been cleared or approved by the U.S. Food and Drug Administration. 12 <5.0 Negative 5.0 - 25.0 Indeterminate (Repeat testing recommended after 72 hours) >25.0 Positive Perimenopausal women can display HCG levels of up to 20 mIU/mL 13 <5.0 Negative 5.0 - 25.0 Indeterminate (Repeat testing recommended after 72 hours) >25.0 Positive Perimenopausal women can display HCG levels of up to 20 mIU/mL 14 <5.0 Negative 5.0 - 25.0 Indeterminate (Repeat testing recommended after 72 hours) >25.0 Positive Perimenopausal women can display HCG levels of up to 20 mIU/mL 15 RUN DATE: 10/20/13 [facility] LAB LIVE PAGE 1 RUN TIME: [address] [place] [address] Specimen Inquiry Name: MARGRET FAIRCHILD : [address]: Karen Jarvis MD Acct: [id number] Unit: [id number] AGE: 33 Location: [place] [address]-01 Re10/16/13 Dis: 10/17/13 SEX: F Status: DIS IN SPEC: [id number] PABLO: 10/16/13- SUBM DR: Karen Jarvis MD REQ: [id number] RECD: 10/16/13-9 STATUS: SOUT _ ORDERED: LEVEL V FINAL DIAGNOSIS Second trimester placenta (133 grams), intrauterine demise: A. Three vessel umbilical cord with edema and no evidence of acute funisitis. B. membranes with no evidence of acute chorioamnionitis. C. Focally infarcted placental disc with extensive fibrin deposition and areas of hemorrhage. COMMENT: Areas of necrotic chorionic villi in association with hemorrhage and fibrin deposition are present, compatible with an ischemic etiology. Dr. Sanchez has reviewed this case and concurs. The findings were discussed with Dr. Jarvis. PRE-OPERATIVE DIAGNOSIS demise at 23 weeks. GROSS DESCRIPTION The specimen is received in formalin labeled Margret Fairchild, Placenta, and consists of a 133 gram placenta with attached cord and membranes. The placental disc measures 10.5 x 7.7 x 1.4 cm. and has a marginally inserted 22.0 cm. by up to 1.0 cm. three vessel yellow-white umbilical cord. The umbilical cord appears slightly CONTINUED ON NEXT PAGE * ML=Testing performed at Main Lab DEPARTMENT OF PATHOLOGY, [address] [place] [address] Jake Sanchez M.D. Director [facility] Permit #[id number] RUN DATE: 10/20/13 [facility] LIVE PAGE 2 RUN TIME: 1107 [address] [place], [place] [address] Specimen Inquiry Patient: MARGRET FAIRCHILD [id number] (Continued) GROSS DESCRIPTION (Continued) GROSS DESCRIPTION (Continued) edematous. The surface is glistening and beltran-pink to beltran-red. The maternal surface is lobulated, beltran-pink with two focal areas of disruption. Associated with these areas of disruption are two discrete areas of parenchymal hemorrhage averaging 2.0 x 2.0 x 1.5 cm. The remaining cut surface is spongy, beltran-pink. The membranes are slightly thickened, beltran-pink. Music Critic sections are submitted in cassettes A through C. Signed (signature on file) Natalie Ricardo MD 01/26 1106 END OF REPORT * ML=Testing performed at Main Lab DEPARTMENT OF PATHOLOGY, [facility] [place], [place] [address] Jake Sanchez M.D. Director [facility] Permit #[id number] 16 2+ (>10-30 /hpf) 17 RUN DATE: 09/18/13 [facility] LIVE PAGE 1 RUN TIME: [address] [place] [address] Specimen Inquiry Name: MARGRET FAIRCHILD Lorenzo : [address]: Rogelio Baez MD Acct: [id number] Unit: [id number] AGE: 33 Location: [facility] Re09/15/13 SEX: F Status: REG REF SPEC: [id number] PABLO: 09/15/[address] [facility] [address]: Rogelio Baez MD REQ: [id number] RECD: 09/15/13 STATUS: [facility] DR: Wilbur Lazo MD _ SOURCE: URINE SPDESC: ORDERED: Urine Culture Procedure Result Verified Site Urine Culture Final 09/18/13- 0903 ML Organism 1 ESCHERICHIA COLI Pelzer Count >100,000 (Many) CFU/ML 1. ESCHERICHIA COLI M.I.C. RX --------- ------ Ampicillin <=2 S Cefazolin <=4 S Cefepime <=1 S Ceftriaxone <=1 S Ciprofloxacin <=0.25 S Gentamicin <=1 S Imipenem <=0.25 S Levofloxacin <=0.12 S Meropenem <=0.25 S Nitrofurantoin <=16 S Tetracycline <=1 S Pipercillin/Tazobactam <=4 S Trimethoprim/Sulfamethoxazole <=20 S Amoxicillin/Clavulanic Acid <=2 S Aztreonam <=1 S Contact the Microbiology Department for any additional antibiotic reporting. END OF REPORT * ML=Testing performed at Main Lab DEPARTMENT OF PATHOLOGY, [address] [place] [address] Jake Sanchez M.D. Director [facility] Permit #[id number] SCREEN NEGATIVE FOR OPEN NTD, DS AND TRISOMY 18. 19 LESS THAN 1:5000 20 ADJUSTED AFP MOM INTERPRETIVE CUTOFFS: <2.50 ADJUSTED MOM <1.90 ADJUSTED MOM FOR INSULIN-DEPENDENT DIABETES <4.00 ADJUSTED MOM FOR TWINS <3.50 ADJUSTED MOM FOR TWINS INSULIN-DEPENDENT DIABETES <4.50 ADJUSTED MOM FOR TRIPLETS <4.00 ADJUSTED MOM FOR TRIPLETS INSULIN-DEPENDENT DIABETES 21 PERFORMANCE OF MATERNAL SERUM AFP, HCG, ESTRIOL, AND DIMERIC INHIBIN A PROVIDES A USEFUL SCREENING TEST FOR DETECTION OF OPEN NEURAL TUBE DEFECTS AND SOME CHROMOSOMAL ABNORMALITIES. IT SHOULD BE NOTED THAT NORMAL RESULTS CAN NEVER GUARANTEE THE OF A NORMAL BABY AND THAT 2 TO 3 PERCENT OF [place] HAVE SOME TYPE OF PHYSICAL OR MENTAL DEFECT, MANY OF WHICH ARE UNDETECTABLE THROUGH ANY KNOWN DIAGNOSTIC TECHNIQUE. THIS IS A SCREENING TEST, NOT A DIAGNOSTIC TEST. THIS RISK ASSESSMENT REPORT IS BASED IN PART ON DEMOGRAPHIC DATA PROVIDED BY THE ORDERING PHYSICIAN. PLEASE NOTIFY THE LAB PROMPTLY IF ANY DATA IS INCORRECT. FOR ASSISTANCE WITH RECALCULATIONS, PLEASE CALL YOUR LOCAL [facility] AT . FOR ASSISTANCE WITH INTERPRETATION OF THESE RESULTS, PLEASE CALL [phone] 22 REVIEWED BY Evangelist LEO M.D. 23 RUN DATE: 08/24/13 [facility] LIVE PAGE 1 RUN TIME: [address] [place] [address] Specimen Inquiry Name: GURINDERMARGRET A : [address]: Juany Cervantes CNM Acct: [id number] Unit: [id number] AGE: 33 Location: [facility] Re08/21/13 SEX: F Status: REG REF SPEC: [id number] PABLO: 08/21/13-[address]: Juany Cevrantes CNM REQ: [id number] RECD: 08/21/134433 STATUS: COMP _ SOURCE: URINE SPDESC: ORDERED: Urine Culture QUERIES: [facility] Number [id number] Procedure Result Verified Site Urine Culture Final 08/24/13- 0759 ML Organism 1 ESCHERICHIA COLI Pelzer Count >100,000 (Many) CFU/ML Organism 2 NORMAL LISA Pelzer Count 25-50,000 (Moderate) CFU/ML 1. ESCHERICHIA COLI M.I.C. RX --------- ------ Ampicillin <=2 S Cefazolin <=4 S Cefepime <=1 S Ceftriaxone <=1 S Ciprofloxacin <=0.25 S Gentamicin <=1 S Imipenem <=0.25 S Levofloxacin <=0.12 S Meropenem <=0.25 S Nitrofurantoin <=16 S Tetracycline <=1 S Pipercillin/Tazobactam <=4 S Trimethoprim/Sulfamethoxazole <=20 S Amoxicillin/Clavulanic Acid <=2 S Aztreonam <=1 S Contact the Microbiology Department for any additional antibiotic reporting. END OF REPORT * ML=Testing performed at Main Lab DEPARTMENT OF PATHOLOGY, [facility] [place], [place] [address] Jake Sanchez M.D. Director [facility] Permit #[id number] RESULT: ECTOCERVICAL/ENDOCERVICAL 25 The following Other High Risk HPV types were not detected: 31, 33, 35, 39, 45, 51, 52, 56, 58, 59, 66, and 68 Test Performed by: [place] [address] Health Consultant: Vel Donaldson III, M.D. 26 RUN DATE: 08/22/13 [facility] LIVE PAGE 1 RUN TIME: [address] [place] [address] Specimen Inquiry Name: MARGRET FAIRCHILD : [address]: Juany Cervantes CNM Acct: [id number] Unit: [id number] AGE: 33 Location: [facility] Re08/21/13 SEX: F Status: REG REF SPEC: [id number] PABLO: 08/21/13-[address] [facility] [address]: Juany Cervantes CNM REQ: [id number] RECD: 08/22/13-1200 STATUS: SOUT _ ORDERED: IMAGE ANALYSIS, HPV/Thin Prep FINAL DIAGNOSIS Negative for Intraepithelial lesion or Malignancy COMMENTS: Specimen sent to [facility] in [place], [place] on 08/22/13 by VANDANA at 1628. Results will be reported separately. A. Ectocervical/Endocervical Specimen Adequacy: Satisfactory of evaluation Transformation zone component identified Patient Information: HPV: High risk HPV DNA testing regardless of pap results. Actual Specimen Date: 08/21/13 LMP If Unknown: 03/2013 Spec Date if unknown: 2005 ?: Y Previous Abnormal Pap Smears?:N Signed (signature on file) COLLEEN Forrest (ASCP) 08/22 1633 This Pap test was evaluated with the assistance of the SynapCellp Test Imaging System. Due to cytologic findings at the assembler equipment microscope, comprehensive manual rescreening by a Plant Science Professor may be required. The Pap Smear is a screening test designed to aid in the detection of premalignant and malignant conditions of the uterine cervix. It is not a diagnostic procedure and should not be used as the sole means of detecting cervical cancer. Both false- positive and false- negative reports do occur. Depending on your risk status, a Pap smear shoudl be obtained and evaluated every 1-3 years. END OF REPORT * ML=Testing performed at Main Lab DEPARTMENT OF PATHOLOGY, [address] [place] [address] Jake Sanchez M.D. Director [facility] Permit #[id number] Reference Range: <0.9 Negative 0.9-1.1 Equivocal >1.1 Positive IgG persists for years and provides life-long immunity. Results from any one IgM assay should not be used as a sole determinant of a current or recent infection. Because IgM tests can yield false positive results and low levels of IgM antibody may persist for months post infection, reliance on a single test result could be misleading. If an acute infection is suspected, consider obtaining a new specimen and submit for both IgG and IgM testing in two or more weeks. To diagnose current infection, consider Parvovirus B19 DNA, PCR. 28 INDEX VALUE RESULTS INTERPRETATION ------- < OR=0.90 NEGATIVE NO TOXOPLASMA IGG ANTIBODY DETECTED 0.91 - 1.09 EQUIVOCAL PRESENCE OR ABSENCE OF TOXOPLASMA IGG ANTIBODY CANNOT BE DISCERNED > OR=1.10 POSITIVE TOXOPLASMA IGG ANTIBODY DETECTED A POSITIVE RESULT INDICATES THAT THE PATIENT HAS ANTIBODY TO TOXOPLASMA IGG. IT DOES NOT DIFFERENTIATE BETWEEN AN ACTIVE OR PAST INFECTION. THE CLINICAL DIAGNOSIS MUST BE INTERPRETED IN CONJUNCTION WITH THE CLINICAL SIGNS AND SYMPTOMS OF THE PATIENT. 29 Indeterminate for acute or recent infection. Consider obtaining a new specimen for IgG and IgM testing. 30 Therapeutic target for the treatment of diabetes Mellitus patients is <7% HBA1C, and in selective patients <6.0%.Please refer to [place] [employer] Diabetic care guidelines for further information. 31 YES 32 RUN DATE: 08/26/13 [facility] LIVE PAGE 1 RUN TIME: [address] [place] [address] Specimen Inquiry Name: MARGRET FIARCHILD : [address]: Juany Cervantes [facility] Acct: [id number] Unit: [id number] AGE: 33 Location: [facility] Re08/21/13 SEX: F Status: REG REF SPEC: [id number] PABLO: 08/21/13-[address] [facility] [address]: Juany BILLY REQ: [id number] RECD: 08/22/13 STATUS: COMP _ [facility] ORDERED: GC/Chlam RNA QUERIES: [facility] Number [id number] Procedure Result Verified Site Chlamydia Trachomatis RNA Final 08/26/13- 1317 ML NEGATIVE for Chlamydia trachomatis rRNA GC (N. gonorrhoeae) RNA Final 08/26/13- 1332 ML NEGATIVE for Neisseria gonorrhoeae rRNA A negative result does not preclude the presence of a C. trachomatis or N. gonorrhoeae infection because results are dependent on adequate specimen collection, absence of inhibitors, and sufficient rRNA to be detected. Test results may be affected by improper specimen collection, improper storage, technical error, or specimen mixup. Limitations of the Procedure: The AptSkyBitz Combo 2 Assay is not intended for the evaluation of suspected sexual abuse or for other medico-legal indications. For those patients for whom a false positive result may have adverse psychosocial impact, the [facility] recommends retesting by a method using an alternate technology. Therapeutic failure or success cannot be determined with the Aptima Combo 2 Assay since nucleic acid may persist following appropriate antimicrobial therapy. Results from the Aptima Combo 2 Assay should be interpreted in conjunction with other laboratory and clinical data available to the clinican. CONTINUED ON NEXT PAGE * ML=Testing performed at Main Lab DEPARTMENT OF PATHOLOGY, [facility] [place] [address] Jake Sanchez M.D. Director [facility] Permit #[id number] RUN DATE: 08/26/13 [facility] LIVE PAGE 2 RUN TIME: 6032 [facility] [employer] [place], [place] [address] Specimen Inquiry Patient: ISRAEL FAIRCHILDDOROTHEA Ventura [id number] (Continued) Specimen: [id number] Collected: 08/21/13-1441 Received: 08/22/13-1028 (Continued) Procedure Result Verified Site GC (N. gonorrhoeae) RNA Final (continued) 08/26/13- 1332 Performance characteristics for detecting C. trachomatis and N. gonorrhoeae are derived from high prevalence populations. Positive results in low prevalence populations should be interpreted carefully with the understanding that the likelihood of a false positive may be higher than a true positive. END OF REPORT * ML=Testing performed at Main Lab DEPARTMENT OF PATHOLOGY, [address] [place] [address] Jake Sanchez M.D. Director [facility] Permit #[id number] 33 It is recognized that currently available assays for the detection of antibodies to HIV-1 and/or HIV-2 may not detect all infected individuals. HIV antibodies may be undetectable in some stages of the infection and in some clinical conditions. The performance of this assay has not been established for populations of infants or children. Assayed by Chemiluminescence Microparticle Immunoassay on the Siemens Advia Centaur CP. Values obtained with different methods or kits cannot be used interchangeably.The diagnostic specificity of the ADVIA Centaur 1/O/2 Enhanced assay in the low risk population was 99.90% (6052/6058) with a 95% confidence interval of 99.78 to 99.96%. 34 IS PATIENT A DIABETIC? N VERBAL TO AMARA BY CAG at 2112 on 01/20/06 that panic result(s) have been sent to the printer. 35 Anion gap measurement may be of limited value in the presence of any alkalosis, especially in a combined acid base disorder. . 36 Lymphopenia % 37 REFERENCE RANGE: FASTING OR 10 MG/DL BELOW 38 REFERENCE RANGE: 5-15 MG/DL ABOVE FASTING 39 REFERENCE RANGE: 20-50 MG/DL ABOVE FASTING 40 FINAL INTERPRETATION: No HIV antibody is detected. . This information has been disclosed to you from confidential records which are protected by [place] State law. State law prohibits you from making further disclosure of this information without the specific written consent of the person to whom it pertains, or as otherwise permitted by law. Any unauthorized further disclosure in violation of state law may result in a fine or fdc sentence or both. General authorization for the release of medical or other information is not, except in limited circumstances set forth in Part 63, Title 10, of [facility], sufficient authorization for further disclosure. Disclosure of confidential HIV information that occurs as the result of a general authorization for the release of medical or other information will be in violation of the state law and may result in a fine or a fdc sentence. . 41 * This method is approved for detection of Chlamydia trachomatis in Endocervical, Male Urethral and Conjunctival Specimens only. POSITIVE RESULT IN A POPULATION WITH LOW PREVALENCE OF DISEASE SHOULD BE INTERPRETED PRESUMPTIVE; INTERPRET RESULTS IN LIGHT OF HISTORY PHYSICAL FINDINGS . 42 * This method is approved for detection of Neisseria Gonnorrhoeae in Endocervical and Male Urethral Specimens only. POSITIVE RESULT IN A POPULATION WITH LOW PREVALENCE OF DISEASE SHOULD BE INTERPRETED PRESUMPTIVE; INTERPRET RESULTS IN LIGHT OF HISTORY PHYSICAL FINDINGS. . 43 FINAL: NO GROWTH DAY 2 (<1,000 CFU/mL) Procedures Date Code Description Status 10/10/2018 50128 Echography Transvaginal Completed 08/28/2018 33528 Fitting & Insertion Of Pessary/Intravaginal Support Device Completed 11/02/2017 73931 Laparoscopy W/Wo Transection W/Fulguration Of Oviducts Completed 10/20/2016 91286 OB Ultrasound First Trimester Completed 10/14/2013 72623 Echography Uterus Follow-Up Or Repeat Completed 09/17/2013 21445 Echography Uterus Complete Completed 09/16/2013 98348 Echography Uterus Limited Completed 08/20/2013 76471 Echography Uterus Complete Completed 03/07/2006 33563 Care Only Completed 01/23/2006 51923 Obstetric Care Routine Completed 01/22/2006 77857 Biophysical Profile W/ NST Completed 01/05/2006 31261 Care Completed 12/22/2005 30097 Care Completed 12/08/2005 14186 Echography Uterus Complete Completed 10/24/2005 95579 Care Completed 09/26/2005 12829 Care Completed 08/29/2005 78719 Care Completed 07/31/2005 23028 Echography Uterus Complete Completed Encounters Type Date Location Provider Dx Diagnosis Office Visit 08/28/2018 [facility] Henry Soria, N81.2 Incomplete 2:20p M.DYaneth uterovaginal prolapse N92.6 Irregular menstruation, unspecified Z11.3 Encntr screen for infections w sexl mode of transmiss N81.9 Female genital prolapse, unspecified Office Visit 11/30/2017 1:00p [facility] Office Henry Ozuna Z30.2 Encounter for Laci Soria sterilization Office Visit 07/18/2017 1:20p [facility] Henry Ozuna Z01.818 Encounter for other Laci Soria preprocedural examination Office Visit 06/14/2017 2:20p [facility] Henry Ozuna Z30.2 Encounter for Laci Soria sterilization Office Visit 03/17/2016 2:15p [facility] Benji, O36.80x1 with MD Becka inconclusive viability, fetus 1 Office Visit 10/16/2013 10:10a [facility] Becky Coburn, V22.1 Supervison Of CNM Normal Other Office Visit 09/16/2013 3:05a Delivery Rogelio Baez, 789.09 Pain Abdominal Other M.DYaneth Spec Site 599.89 Urinary Tract Other Spec Disorders Office Visit 07/13/2005 11:00a [facility] Candy Burnette, 640.00 Threatened CNM Episode Of Care Unspec Or N/A Office Visit 11/29/2004 1:00p [facility] Amy Thrasher, 626.0 Menstruation ANP-C Absence Office Visit 11/11/2004 2:00p [facility] Lian Rivera, 626.1 Menstruation Scanty CNM Or Infrequent V72.40 Test Unconfirm Office Visit 11/27/2003 1:00p [facility] Lian Rivera CNM 569.3 Hemorrhage Rectum & Anus V72.4 Examination Or Test Unconfirmed Office Visit 08/05/2003 1:00p [facility] Lian Rivera, 626.1 Menstruation Scanty CNM Or Infrequent 626.4 Irregular Menstrual Cycle V72.4 Examination Or Test Unconfirmed Plan of Treatment Future Appointment(s):11/18/2018 11:20 am - Henry Soria M.D. at [facility]
--- OUTSIDE RECORDS SUMMARY | 2018-10-22 10:21 | XMS REPORT | Continuity of Care Document ---
:1980 External Reference #:[id number] Author Name Sudhakar Vargas M.D. Address [address] [facility] [address] [place] [address] Care Team Providers Name Role Phone Sudhakar Vargas MD Care Team Information [employer] Unavailable Payers Date Identification Numbers Payment Provider Subscriber Effective: 2018 Policy Number: [id number] [facility] Margret Faicrhild PayID: [id number] [place] [address] Policy Number: [id number] [employer] Margret Fairchild PayID: [id number] [address] [place] [address] Effective: 2014 Policy Number: [id number] [facility] Margret Fairchild Expires: 2018 PayID: [id number] [address] [place] [address] Advance Directives Description No Information Available Problems Description No Information Family History Date Family Member(s) Observation Comments Children 5 First Son adhd First Son 17 Second Son hershbrungs Second Son 9 First Daughter 15 Second Daughter 5 First Sister 31 First Sister No Current Problems Second Sister 29 Second Sister No Current Problems Third Sister 27 Third Sister No Current Problems Social History Type Date Description Comments Sex Unknown Education Highest level completed, 1 year of college Marital Status Legal Status: Sleep Reports difficulty falling asleep Sleep Reports continuity disturbances ETOH Use Rarely consumes alcohol Tobacco Use Start: Unknown Patient is a current 1/2 apack aday to smoker, smokes every day apack Smoking Status Reviewed: 09/24/18 Patient is a current 1/2 apack aday to smoker, smokes every day apack Currently Active Patient is currently sexually active Allergies, Adverse Reactions, Alerts Description No Known Drug Allergies Medications Medication Date Status Form Strength Qnty SIG Indications Ordering Provider Proctosol HC Active Cream 2.5% 28.350g apply to K64.9 Sam, 018 m perianal Ahmad M., area twice M.D. a day as needed Lexapro Active Tablets 20mg 90tabs Take 1 F41.9 Sam, 018 Tablet By Ahmad M., Mouth Every M.D. Day F33.9 Amphetamine-Dextroamphetamine 07/26/2017 Active Tablets 20mg 60tabs 1 tab F90.0 Sam, by Ahmad mouth M., twice M.D. a day Alprazolam 12/08/2015 Active Tablets 1mg 30tabs 1/2-1 F41.9 Sam, tab by Ahmad mouth M., at M.D. bedtim e as needed G47.00 Azithromycin Hx Tablets 250mg 6tabs take two tablets Sam, 018 - by mouth as one Ahmad M., dose on the M.D. 018 first day then take one daily thereafter x 4 days Prednisone Hx Tablets 20mg 8tabs 2 tab by mouth Sam, 018 - daily 4 days Ahmad M., M.D. 018 Nicotine Polacrilex Hx Lozenges 2mg 81units one lozenger q F17.21 Sam, 018 - 3-4 hr 0 Ahmad M., M.D. 018 Azithromycin Hx Tablets 250mg 6tabs take two tablets L20.9 Sam, 018 - by mouth as one Ahmad M., dose on the M.D. 018 first day then take one daily thereafter x 4 days Azithromycin Hx Tablets 250mg 6tabs take two tablets J06.9 Sam, 017 - by mouth as one Ahmad M., dose on the M.D. 017 first day then take one daily thereafter x 4 days Cheratussin ac Hx Syrup 100-10m 150unit teaspoon 1 every L20.9 Sam, 017 - g/5ML s 4 hours as Ahmad M., needed M.D. 017 Amphetamine-Dextroa Hx Tablets 10mg 90tabs 2 Tabs PO qam F90.0 Sam, mphetamine 017 - And 2 Tabs PO Ahmad M., Every Afternoon M.D. 018 Nicotine Polacrilex Hx Lozenges 2mg 243unit one lozenger q F17.21 Sam, 017 - s 3-4 hr 0 Ahmad M., M.D. 018 Amoxicillin Hx Tablets 500mg 30tabs 1 three times a J01.80 Sam, 017 - day x10 day Ahmad M., M.D. 017 Pre-[place] Formula Hx Tab 100tabs Tab One Q Am N91.0 Sam, 017 - Ahmad M., M.D. 018 Amoxicillin Hx Tablets 500mg 40tabs 2 by mouth twice L20.9 Sam, 016 - a day Ahmad M., M.D. 016 Alprazolam Hx Tablets 2mg 90tabs 1 tab by mouth F41.9 Sam, 016 - three times a Ahmad M., day M.D. 016 G47.00 Alprazolam 06/23/2015 - Hx Tablets 1mg 180tabs tab Two by F41.9 Sam, mad 09/01/2015 mouth three M., M.D. times a day G47.00 Alprazolam 05/19/2015 - Hx Tablets 0.5mg 90tabs 1 tab by F41.9 Sam, Ahmad 06/23/2015 mouth three M., M.D. times a day as needed G47.00 Alprazolam 04/21/2015 - Hx Tablets 0.25mg 90tabs 1 by mouth F41.9 Sam , 05/19/2015 three times Ahmad M., a day as M.D. needed Escitalopram 04/21/2015 - Hx Tablets 20mg 90tabs tab one by F41.9 Sam , Oxalate 01/17/2018 mouth every Ahmad M., day M.D. F33.9 Ibuprofen - Hx Tablets 600mg 1 tab by R51 Unknown 08/16/2018 mouth three times a day as needed Doxycycline Hyclate - Hx Capsules 100mg Unknown 03/31/2015 Misoprostol - Hx Tablets 200mcg Torrado A. 03/31/2015 [place] Ciprofloxacin HCL - Hx Tablets 500mg Unknown 03/31/2015 Immunizations CPT Code Status Date Vaccine Lot # [id number] Refused 05/19/2015 Flu Vaccine Vital Signs Date Vital Result Comment 10/01/2018 11:32am BP Systolic 146 mmHg BP Diastolic 68 mmHg Height 65 inches 5'5" Weight 154.00 lb BMI (Body Mass Index) 25.6 kg/m2 Heart Rate 93 /min Respiratory Rate 16 /min 08/27/2018 10:08am BP Systolic 122 mmHg BP Diastolic 70 mmHg Height 65 inches 5'5" Weight 154.00 lb BMI (Body Mass Index) 25.6 kg/m2 Heart Rate 90 /min Respiratory Rate 16 /min 07/25/2018 9:39am BP Systolic 118 mmHg BP Diastolic 80 mmHg Height 65 inches 5'5" Weight 151.00 lb BMI (Body Mass Index) 25.1 kg/m2 Heart Rate 110 /min Respiratory Rate 16 /min 06/25/2018 9:10am BP Systolic 134 mmHg BP Diastolic 80 mmHg Height 65 inches 5'5" Weight 149.00 lb BMI (Body Mass Index) 24.8 kg/m2 Heart Rate 107 /min Respiratory Rate 16 /min 05/23/2018 9:44am BP Systolic 122 mmHg BP Diastolic 82 mmHg Height 65 inches 5'5" Weight 150.00 lb BMI (Body Mass Index) 25.0 kg/m2 Heart Rate 103 /min Respiratory Rate 16 /min 04/23/2018 9:45am BP Systolic 128 mmHg BP Diastolic 70 mmHg Height 65 inches 5'5" Weight 148.00 lb BMI (Body Mass Index) 24.6 kg/m2 Heart Rate 112 /min Body Temperature 97.3 F Respiratory Rate 16 /min 03/21/2018 11:49am BP Systolic 120 mmHg BP Diastolic 80 mmHg Height 65 inches 5'5" Weight 150.00 lb BMI (Body Mass Index) 25.0 kg/m2 Heart Rate 77 /min Respiratory Rate 104 /min 02/21/2018 1:06pm BP Systolic 128 mmHg BP Diastolic 80 mmHg Height 65 inches 5'5" Weight 149.00 lb BMI (Body Mass Index) 24.8 kg/m2 Heart Rate 107 /min Respiratory Rate 16 /min 01/21/2018 11:09am BP Systolic 128 mmHg BP Diastolic 84 mmHg Height 65 inches 5'5" Weight 152.00 lb BMI (Body Mass Index) 25.3 kg/m2 Heart Rate 102 /min Respiratory Rate 16 /min 12/20/2017 12:58pm BP Systolic 134 mmHg BP Diastolic 82 mmHg Height 65 inches 5'5" Weight 151.00 lb BMI (Body Mass Index) 25.1 kg/m2 Heart Rate 105 /min Respiratory Rate 18 /min 11/19/2017 10:34am BP Systolic 120 mmHg BP Diastolic 78 mmHg Height 65 inches 5'5" Weight 153.00 lb BMI (Body Mass Index) 25.5 kg/m2 Heart Rate 112 /min Respiratory Rate 18 /min 10/19/2017 10:57am BP Systolic 142 mmHg BP Diastolic 90 mmHg Height 65 inches 5'5" Weight 149.00 lb BMI (Body Mass Index) 24.8 kg/m2 Heart Rate 115 /min Respiratory Rate 18 /min 09/24/2017 11:40am BP Systolic 130 mmHg BP Diastolic 90 mmHg Height 65 inches 5'5" Weight 149.00 lb BMI (Body Mass Index) 24.8 kg/m2 Heart Rate 93 /min Respiratory Rate 18 /min 08/27/2017 2:38pm BP Systolic 150 mmHg BP Diastolic 98 mmHg Height 65 inches 5'5" Weight 150.00 lb BMI (Body Mass Index) 25.0 kg/m2 Heart Rate 98 /min Respiratory Rate 18 /min 07/26/2017 1:43pm BP Systolic 110 mmHg BP Diastolic 62 mmHg Height 65 inches 5'5" Weight 150.00 lb BMI (Body Mass Index) 25.0 kg/m2 Heart Rate 115 /min Respiratory Rate 18 /min 06/27/2017 1:37pm BP Systolic 140 mmHg BP Diastolic 88 mmHg Height 65 inches 5'5" Weight 156.00 lb BMI (Body Mass Index) 26.0 kg/m2 Heart Rate 89 /min Body Temperature 97.9 F Respiratory Rate 18 /min 05/30/2017 1:29pm BP Systolic 118 mmHg BP Diastolic 64 mmHg Height 65 inches 5'5" Weight 161.00 lb BMI (Body Mass Index) 26.8 kg/m2 Heart Rate 90 /min Body Temperature 97.1 F Respiratory Rate 16 /min 10/18/2016 10:08am BP Systolic 110 mmHg BP Diastolic 72 mmHg Height 65 inches 5'5" Weight 136.00 lb BMI (Body Mass Index) 22.6 kg/m2 Heart Rate 88 /min Respiratory Rate 18 /min 10/02/2016 3:35pm BP Systolic 114 mmHg BP Diastolic 68 mmHg Height 65 inches 5'5" Weight 133.00 lb BMI (Body Mass Index) 22.1 kg/m2 Heart Rate 114 /min Respiratory Rate 20 /min 02/16/2016 2:15pm BP Systolic 118 mmHg BP Diastolic 62 mmHg Height 65 inches 5'5" Weight 134.00 lb BMI (Body Mass Index) 22.3 kg/m2 Heart Rate 84 /min Respiratory Rate 20 /min 01/19/2016 2:26pm BP Systolic 124 mmHg BP Diastolic 68 mmHg Height 65 inches 5'5" Weight 138.00 lb BMI (Body Mass Index) 23.0 kg/m2 Heart Rate 82 /min Respiratory Rate 20 /min 12/08/2015 3:43pm BP Systolic 124 mmHg BP Diastolic 66 mmHg Height 65 inches 5'5" Weight 139.00 lb BMI (Body Mass Index) 23.1 kg/m2 Heart Rate 84 /min Respiratory Rate 19 /min 10/22/2015 10:47am BP Systolic 110 mmHg BP Diastolic 76 mmHg Height 65 inches 5'5" Weight 142.00 lb BMI (Body Mass Index) 23.6 kg/m2 Heart Rate 107 /min Body Temperature 97.8 F Respiratory Rate 18 /min 10/06/2015 9:58am BP Systolic 124 mmHg BP Diastolic 83 mmHg Height 65 inches 5'5" Weight 143.00 lb BMI (Body Mass Index) 23.8 kg/m2 Heart Rate 103 /min Respiratory Rate 18 /min 09/23/2015 1:35pm BP Systolic 126 mmHg BP Diastolic 72 mmHg Height 65 inches 5'5" Weight 139.00 lb BMI (Body Mass Index) 23.1 kg/m2 Heart Rate 80 /min Respiratory Rate 16 /min 08/30/2015 9:19am BP Systolic 126 mmHg BP Diastolic 85 mmHg Height 65 inches 5'5" Weight 144.00 lb BMI (Body Mass Index) 24.0 kg/m2 Heart Rate 110 /min Respiratory Rate 18 /min 08/13/2015 10:55am BP Systolic 112 mmHg BP Diastolic 78 mmHg Height 65 inches 5'5" Weight 144.00 lb BMI (Body Mass Index) 24.0 kg/m2 Heart Rate 114 /min Respiratory Rate 18 /min 06/23/2015 11:13am BP Systolic 115 mmHg BP Diastolic 76 mmHg Height 65 inches 5'5" Weight 137.00 lb BMI (Body Mass Index) 22.8 kg/m2 Heart Rate 103 /min Respiratory Rate 18 /min 05/19/2015 2:47pm BP Systolic 114 mmHg BP Diastolic 77 mmHg Height 65 inches 5'5" Weight 134.00 lb BMI (Body Mass Index) 22.3 kg/m2 Heart Rate 107 /min Respiratory Rate 18 /min 04/21/2015 11:46am BP Systolic 118 mmHg BP Diastolic 78 mmHg Height 65 inches 5'5" Weight 138.00 lb BMI (Body Mass Index) 23.0 kg/m2 Heart Rate 92 /min Respiratory Rate 18 /min 03/31/2015 2:11pm BP Systolic 112 mmHg BP Diastolic 75 mmHg Height 65 inches 5'5" Weight 137.00 lb BMI (Body Mass Index) 22.8 kg/m2 Heart Rate 98 /min Body Temperature 98.2 F Respiratory Rate 18 /min Results Test Date Facility Test Result H/L Range Note GC/Chlamydia 08/28/2018 [facility] Chlamydia Negative Negative Amplified Rna trachomatis Rna Neisseria gonorrhoeae (GC) Rna Negative Negative Laboratory test 08/28/2018 [facility] Cytology SEE RESULT 1 finding BELOW Ethyl Glucuronide 07/25/2018 [facility] Ethyl Glucuronide Negative ng/mL N 500 2 PDF SEE IMAGE Laboratory test finding 07/25/2018 [facility] Tramadol Negative ng/mL N 5 3 Gabapentin Negative ng/mL N 100 4 Citalopram/Escitalopram Negative Inconsi <SEE NOTE> ng/mL Abnormal 5 5 Urine DRG SCR 07/25/2018 [facility] Amphetamine POSITIVE Abnormal 1000 (12PNL-PM) Barbiturate NEGATIVE N 200 Benzodiazepine POSITIVE Abnormal 200 Buprenorphine NEGATIVE N 15 Cannabinoid NEGATIVE N 50 Cocaine NEGATIVE N 300 Methadone NEGATIVE N 300 Opiate NEGATIVE N 300 Oxycodone NEGATIVE N 300 Phencyclidine NEGATIVE N 25 6 Cocaine Panel By 07/25/2018 [facility] Benzoylecgonine Negative ng/mL N 50 7 LC/MS/MS (Cocaine) Amphetamine Panel 07/25/2018 [facility] Amphetamine Positive > 5000 N 50 8 By LC/MS/MS C <SEE NOTE> ng/mL Methamphetamine Negative ng/mL N 50 Mdma (Ecstasy) Negative ng/mL N 50 Mda Negative ng/ml N 50 Mdea Negative ng/mL N 50 9 Specimen Validity 07/25/2018 [facility] Creatinine, Urine 243 mg/ dL N >20 Panel Color YELLOW N Yellow pH 9.0 Abnormal 5.0-8.0 Specific [employer] 1.022 N 1.001-1.035 10 Opiates Panel By 07/25/2018 [facility] 6-James (Heroin Negative ng/ mL N 5 LC/MS/MS Metabolite) Codeine Negative ng/mL N 50 Hydrocodone Negative ng/mL N 50 Hydromorphone Negative ng/mL N 50 Morphine Negative ng/mL N 50 Norhydrocodone Negative ng/mL N 50 Noroxycodone Negative ng/mL N 50 Noroxymorphone Negative ng/mL N 50 Oxycodone Negative ng/mL N 50 Oxymorphone Negative ng/mL N 50 11 Methadone Panel By 07/25/2018 [facility] Eddp Negative ng/mL N 10 LC/MS/MS Methadone Negative ng/mL N 10 12 Buprenorphine Panel By 07/25/2018 [facility] Buprenorphine Negative ng/mL N 5 LC/MS/MS Naloxone Negative ng/mL N 10 Norbuprenorphine Negative ng/mL N 5 13 Benzodiazepines 07/25/2018 [facility] 2-Hydroxyethylflurazepam Negative N 10 Panel By LC/MS/MS ng/mL 7-Aminoclonazepam Negative ng/mL N 10 Alprazolam 167 Positive Con <SEE NOTE> ng/mL N 10 14 Chlordiazepoxide Negative ng/mL N 10 Clonazepam Negative ng/mL N 10 Desalkylflurazepam Negative ng/mL N 10 Diazepam Negative ng/mL N 10 Lorazepam Negative ng/mL N 10 Midazolam Negative ng/ml N 10 Nordiazepam Negative ng/mL N 10 Alpha-hydroxyalprazolam 576 Positive Con <SEE NOTE> ng/mL N 10 15 Alpha-Hydroxymidazolam Negative ng/mL N 10 Alpha-Hydroxytriazolam Negative ng/mL N 10 Oxazepam Negative ng/mL N 10 Prazepam Negative ng/mL N 10 Temazepam Negative ng/mL N 10 16 Barbiturates Panel By 07/25/2018 [facility] Butalbital Negative ng/mL N 100 LC/MS/MS Pentobarbital Negative ng/mL N 100 Phenobarbital Negative ng/mL N 100 Secobarbital Negative ng/mL N 100 17 Antidepressants Panel 07/25/2018 [facility] Amitriptyline Negative ng/mL N 20 By LC/MS/MS Clomipramine Negative ng/mL N 20 Desipramine Negative ng/mL N 20 Doxepin Negative ng/mL N 20 Fluoxetine Negative ng/mL N 20 Imipramine Negative ng/mL N 20 Norclomipramine Negative ng/mL N 20 Nordoxepin Negative ng/mL N 20 Nortriptyline Negative ng/mL N 20 Sertraline Negative ng/mL N 20 Trimipramine Negative ng/mL N 20 18 Urine Drug 07/25/2018 [facility] [id number]-5-Cooh Negative N 5 19 [place] ng/mL Ethyl 06/25/2018 [facility] Ethyl Glucuronide 1510 Abnormal 500 20, Glucuronide Positive In 21 <SEE NOTE> ng/mL PDF SEE IMAGE Laboratory test finding 06/25/2018 [facility] Tramadol Negative ng/mL N 5 22 Gabapentin Negative ng/mL N 100 23 Citalopram/Escitalopram Negative Inconsi <SEE NOTE> ng/mL Abnormal 5 24 Urine DRG SCR 06/25/2018 [facility] Amphetamine POSITIVE Abnormal 1000 (12PNL-PM) Barbiturate NEGATIVE N 200 Benzodiazepine POSITIVE Abnormal 200 Buprenorphine NEGATIVE N 15 Cannabinoid NEGATIVE N 50 Cocaine NEGATIVE N 300 Methadone NEGATIVE N 300 Opiate NEGATIVE N 300 Oxycodone NEGATIVE N 300 Phencyclidine NEGATIVE N 25 25 Cocaine Panel By 06/25/2018 [facility] Benzoylecgonine Negative ng/mL N 50 26 LC/MS/MS (Cocaine) Amphetamine Panel 06/25/2018 [facility] Amphetamine Positive > 5000 N 50 27 By LC/MS/MS C <SEE NOTE> ng/mL Methamphetamine Negative ng/mL N 50 Mdma (Ecstasy) Negative ng/mL N 50 Mda Negative ng/ml N 50 Mdea Negative ng/mL N 50 28 Specimen Validity 06/25/2018 [facility] Creatinine, Urine 170 mg/ dL N >20 Panel Color YELLOW N Yellow pH 6.1 N 5.0-8.0 Specific [employer] 1.025 N 1.001-1.035 29 Opiates Panel By 06/25/2018 [facility] 6-[facility] (Heroin Negative ng/ mL N 5 LC/MS/MS Metabolite) Codeine Negative ng/mL N 50 Hydrocodone Negative ng/mL N 50 Hydromorphone Negative ng/mL N 50 Morphine Negative ng/mL N 50 Norhydrocodone Negative ng/mL N 50 Noroxycodone Negative ng/mL N 50 Noroxymorphone Negative ng/mL N 50 Oxycodone Negative ng/mL N 50 Oxymorphone Negative ng/mL N 50 30 Methadone Panel By 06/25/2018 [facility] Eddp Negative ng/mL N 10 LC/MS/MS Methadone Negative ng/mL N 10 31 Buprenorphine Panel By 06/25/2018 [facility] Buprenorphine Negative ng/mL N 5 LC/MS/MS Naloxone Negative ng/mL N 10 Norbuprenorphine Negative ng/mL N 5 32 Benzodiazepines 06/25/2018 [facility] 2-Hydroxyethylflurazepam Negative N 10 Panel By LC/MS/MS ng/mL 7-Aminoclonazepam Negative ng/mL N 10 Alprazolam 72 Positive Cons <SEE NOTE> ng/mL N 10 33 Chlordiazepoxide Negative ng/mL N 10 Clonazepam Negative ng/mL N 10 Desalkylflurazepam Negative ng/mL N 10 Diazepam Negative ng/mL N 10 Lorazepam Negative ng/mL N 10 Midazolam Negative ng/ml N 10 Nordiazepam Negative ng/mL N 10 Alpha-hydroxyalprazolam 169 Positive Con <SEE NOTE> ng/mL N 10 34 Alpha-Hydroxymidazolam Negative ng/mL N 10 Alpha-Hydroxytriazolam Negative ng/mL N 10 Oxazepam Negative ng/mL N 10 Prazepam Negative ng/mL N 10 Temazepam Negative ng/mL N 10 35 Barbiturates Panel By 06/25/2018 [facility] Butalbital Negative ng/mL N 100 LC/MS/MS Pentobarbital Negative ng/mL N 100 Phenobarbital Negative ng/mL N 100 Secobarbital Negative ng/mL N 100 36 Antidepressants Panel 06/25/2018 [facility] Amitriptyline Negative ng/mL N 20 By LC/MS/MS Clomipramine Negative ng/mL N 20 Desipramine Negative ng/mL N 20 Doxepin Negative ng/mL N 20 Fluoxetine Negative ng/mL N 20 Imipramine Negative ng/mL N 20 Norclomipramine Negative ng/mL N 20 Nordoxepin Negative ng/mL N 20 Nortriptyline Negative ng/mL N 20 Sertraline Negative ng/mL N 20 Trimipramine Negative ng/mL N 20 37 Urine Drug [place] 06/25/2018 [facility] [id number]-[id number]-4-Cooh Negative N 5 38 ng/mL Urine Drug [place] 09/24/2017 [facility] [id number]-8-Cooh Negative N 5 39, 40 ng/mL Barbiturates Panel 09/24/2017 [facility] Butalbital Negative N 100 By LC/MS/MS ng/mL Pentobarbital Negative ng/mL N 100 Phenobarbital Negative ng/mL N 100 Secobarbital Negative ng/mL N 100 41 Benzodiazepines 09/24/2017 [facility] 2-Hydroxyethylflurazepam Negative N 10 Panel By LC/MS/MS ng/mL 7-Aminoclonazepam Negative ng/mL N 10 Alprazolam Positive >1000 C <SEE NOTE> ng/mL N 10 42 Chlordiazepoxide Negative ng/mL N 10 Clonazepam Negative ng/mL N 10 Desalkylflurazepam Negative ng/mL N 10 Diazepam Negative ng/mL N 10 Lorazepam Negative ng/mL N 10 Midazolam Negative ng/ml N 10 Nordiazepam Negative ng/mL N 10 Alpha-hydroxyalprazolam 359 Positive Con <SEE NOTE> ng/mL N 10 43 Alpha-Hydroxymidazolam Negative ng/mL N 10 Alpha-Hydroxytriazolam Negative ng/mL N 10 Oxazepam Negative ng/mL N 10 Prazepam Negative ng/mL N 10 Temazepam Negative ng/mL N 10 Zolpidem Negative ng/mL N 10 44 Buprenorphine Panel By 09/24/2017 [facility] Buprenorphine Negative ng/mL N 5 LC/MS/MS Naloxone Negative ng/mL N 10 Norbuprenorphine Negative ng/mL N 5 45 Methadone Panel By 09/24/2017 [facility] Eddp Negative ng/mL N 10 LC/MS/MS Methadone Negative ng/mL N 10 46 Opiates Panel By 09/24/2017 [facility] 6-[facility] (Heroin Negative ng/ mL N 5 LC/MS/MS Metabolite) Codeine Negative ng/mL N 50 Hydrocodone Negative ng/mL N 50 Hydromorphone Negative ng/mL N 50 Morphine Negative ng/mL N 50 Norhydrocodone Negative ng/mL N 50 Noroxycodone Negative ng/mL N 50 Noroxymorphone Negative ng/mL N 50 Oxycodone Negative ng/mL N 50 Oxymorphone Negative ng/mL N 50 47 Amphetamine Panel By 09/24/2017 [facility] Amphetamine Positive > 5000 C N 50 48 LC/MS/MS <SEE NOTE> ng/mL Methamphetamine Negative ng/mL N 50 Mdma (Ecstasy) Negative ng/mL N 50 Mda Negative ng/ml N 50 Mdea Negative ng/mL N 50 49 Cocaine Panel By 09/24/2017 [facility] Benzoylecgonine Negative ng/mL N 50 50 LC/MS/MS (Cocaine) Laboratory test 09/24/2017 [facility] Tramadol Negative ng/mL N 5 51 finding Gabapentin Negative ng/mL N 100 52 Message 09/24/2017 [facility] Message (SEE NOTE) N 53 PDF SEE IMAGE CBC Auto Diff 07/26/2017 [facility] White Blood Count 8.5 10^3/uL N 3.5-10.8 Red Blood Count 4.61 10^6/uL N 4.0-5.4 Hemoglobin 12.8 g/dL N 12.0-16.0 Hematocrit 39 % N 35-47 Mean Corpuscular Volume 85 fL N 80-97 Mean Corpuscular Hemoglobin 28 pg N 27-31 Mean Corpuscular HGB Conc 33 g/dL N 31-36 Red Cell Distribution Width 14 % N 10.5-15 Platelet Count 380 10^3/uL N 150-450 Mean Platelet Volume 8 um3 N 7.4-10.4 Abs Neutrophils 5.9 10^3/uL N 1.5-7.7 Abs Lymphocytes 1.9 10^3/uL N 1.0-4.8 Abs Monocytes 0.5 10^3/uL N 0-0.8 Abs Eosinophils 0.2 10^3/uL N 0-0.6 Abs Basophils 0 10^3/uL N 0-0.2 Abs Nucleated RBC 0 10^3/uL Granulocyte % 69.2 % N 38-83 Lymphocyte % 23.0 % Low 25-47 Monocyte % 5.4 % N 1-9 Eosinophil % 2.2 % N 0-6 Basophil % 0.2 % N 0-2 Nucleated Red Blood Cells % 0 Urinalysis Profile 07/26/2017 [facility] Urine Color Yellow Urine Appearance Cloudy Urine Specific [employer] 1.021 N 1.010-1.030 Urine pH 6.0 N 5-9 Urine Urobilinogen Negative Negative Urine Ketones Negative Negative Urine Protein 1+(30 mg/dL) Abnormal Negative Urine Leukocytes Negative Negative Urine Blood Negative Negative Urine Nitrite Negative Negative Urine Bilirubin Negative Negative Urine Glucose Negative Negative Urine White Blood Cell 1+(6-10/hpf) Abnormal Absent Urine Red Blood Cell Absent Absent Urine Bacteria Absent Absent Urine Squamous Epithelial Cell Present Abnormal Absent Urine Hyaline Casts Present Abnormal Absent Urine Granular Casts Present Abnormal Absent Comp Metabolic Panel 07/26/2017 [facility] Sodium 138 mmol/L N 133- 145 Potassium 4.1 mmol/L N 3.5-5.0 Chloride 105 mmol/L N 101-111 Co2 Carbon Dioxide 26 mmol/L N 22-32 Anion Gap 7 mmol/L N 2-11 Glucose 108 mg/dL High 70-100 Blood Urea Nitrogen 11 mg/dL N 6-24 Creatinine 0.87 mg/dL N 0.51-0.95 BUN/Creatinine Ratio 12.6 N 8-20 Calcium 9.0 mg/dL N 8.6-10.3 Total Protein 6.8 g/dL N 6.4-8.9 Albumin 3.8 g/dL N 3.2-5.2 Globulin 3.0 g/dL N 2-4 Albumin/Globulin Ratio 1.3 N 1-3 Total Bilirubin 0.40 mg/dL N 0.2-1.0 Alkaline Phosphatase 89 U/L N 34-104 Alt 15 U/L N 7-52 Ast 13 U/L N 13-39 Egfr Non- 74.1 >60 Egfr 95.3 >60 54 Ethyl Glucuronide 05/30/2017 [facility] Ethyl Glucuronide Negative ng/mL N 500 PDF SEE IMAGE Cocaine Panel By 05/30/2017 [facility] Benzoylecgonine Negative ng/mL N 50 55 LC/MS/MS (Cocaine) Amphetamine Panel 05/30/2017 [facility] Amphetamine Negative ng/ mL N 50 By LC/MS/MS Methamphetamine Negative ng/mL N 50 Mdma (Ecstasy) Negative ng/mL N 50 Mda Negative ng/ml N 50 Mdea Negative ng/mL N 50 56 Laboratory test finding 05/30/2017 [facility] Tramadol Negative ng/mL N 5 57 Gabapentin Negative ng/mL N 100 58 Citalopram/Escitalopram Negative Inconsi <SEE NOTE> ng/mL Abnormal 5 59 Specimen Validity 05/30/2017 [facility] Creatinine, Urine 107 mg/ dL N >20 Panel Color YELLOW N Yellow pH 6.7 N 5.0-8.0 Specific [employer] 1.020 N 1.001-1.035 60 Opiates Panel By 05/30/2017 [facility] 6-James (Heroin Negative ng/ mL N 5 LC/MS/MS Metabolite) Codeine Negative ng/mL N 50 Hydrocodone Negative ng/mL N 50 Hydromorphone Negative ng/mL N 50 Morphine Negative ng/mL N 50 Norhydrocodone Negative ng/mL N 50 Noroxycodone Negative ng/mL N 50 Noroxymorphone Negative ng/mL N 50 Oxycodone Negative ng/mL N 50 Oxymorphone Negative ng/mL N 50 61 Methadone Panel By 05/30/2017 [facility] Eddp Negative ng/mL N 10 LC/MS/MS Methadone Negative ng/mL N 10 62 Buprenorphine Panel By 05/30/2017 [facility] Buprenorphine Negative ng/mL N 5 LC/MS/MS Naloxone Negative ng/mL N 10 Norbuprenorphine Negative ng/mL N 5 63 Benzodiazepines 05/30/2017 [facility] 2-Hydroxyethylflurazepam Negative N 10 Panel By LC/MS/MS ng/mL 7-Aminoclonazepam Negative ng/mL N 10 Alprazolam Positive Consist <SEE NOTE> ng/mL N 10 64 Chlordiazepoxide Negative ng/mL N 10 Clonazepam Negative ng/mL N 10 Desalkylflurazepam Negative ng/mL N 10 Diazepam Negative ng/mL N 10 Lorazepam Negative ng/mL N 10 Midazolam Negative ng/ml N 10 Nordiazepam Negative ng/mL N 10 Alpha-hydroxyalprazolam Positive Consist <SEE NOTE> ng/mL N 10 65 Alpha-Hydroxymidazolam Negative ng/mL N 10 Alpha-Hydroxytriazolam Negative ng/mL N 10 Oxazepam Negative ng/mL N 10 Prazepam Negative ng/mL N 10 Temazepam Negative ng/mL N 10 Zolpidem Negative ng/mL N 10 66 Barbiturates Panel By 05/30/2017 [facility] Butalbital Negative ng/mL N 100 LC/MS/MS Pentobarbital Negative ng/mL N 100 Phenobarbital Negative ng/mL N 100 Secobarbital Negative ng/mL N 100 67 Antidepressants Panel 05/30/2017 [facility] Amitriptyline Negative ng/mL N 20 By LC/MS/MS Clomipramine Negative ng/mL N 20 Desipramine Negative ng/mL N 20 Doxepin Negative ng/mL N 20 Fluoxetine Negative ng/mL N 20 Imipramine Negative ng/mL N 20 Norclomipramine Negative ng/mL N 20 Nordoxepin Negative ng/mL N 20 Nortriptyline Negative ng/mL N 20 Sertraline Negative ng/mL N 20 Trimipramine Negative ng/mL N 20 68 Urine Drug 05/30/2017 [facility] SNA-Nlthx-3-Cooh Negative ng/mL N 5 69 [place] Urine DRG SCR 05/30/2017 [facility] Amphetamine NEGATIVE N 1000 (12PNL-PM) Barbiturate NEGATIVE N 200 Benzodiazepine POSITIVE Abnormal 200 Buprenorphine NEGATIVE N 15 Cannabinoid NEGATIVE N 50 Cocaine NEGATIVE N 300 Methadone NEGATIVE N 300 Eddp NEGATIVE N 300 Methaqualone NEGATIVE N 300 Opiate NEGATIVE N 300 Oxycodone NEGATIVE N 300 Phencyclidine NEGATIVE N 25 Propoxyphene NEGATIVE N 300 70 Urinalysis Profile 11/16/2016 [facility] Urine Color Straw N Urine Appearance Clear N Urine Specific [employer] 1.008 Low 1.010-1.030 Urine pH 7.0 N 5-9 Urine Urobilinogen Negative N Negative Urine Ketones Negative N Negative Urine Protein Negative N Negative Urine Leukocytes Negative N Negative Urine Blood Negative N Negative Urine Nitrite Negative N Negative Urine Bilirubin Negative N Negative Urine Glucose Negative N Negative CBC Auto Diff 11/16/2016 [facility] White Blood Count 7.6 10^3/uL N 3.5-10.8 Red Blood Count 4.44 10^6/uL N 4.0-5.4 Hemoglobin 12.1 g/dL N 12.0-16.0 Hematocrit 38 % N 35-47 Mean Corpuscular Volume 85 fL N 80-97 Mean Corpuscular Hemoglobin 27 pg N 27-31 Mean Corpuscular HGB Conc 32 g/dL N 31-36 Red Cell Distribution Width 16 % High 10.5-15 Platelet Count 278 10^3/uL N 150-450 Mean Platelet Volume 7 um3 Low 7.4-10.4 Abs Neutrophils 5.6 10^3/uL N 1.5-7.7 Abs Lymphocytes 1.4 10^3/uL N 1.0-4.8 Abs Monocytes 0.5 10^3/uL N 0-0.8 Abs Eosinophils 0.1 10^3/uL N 0-0.6 Abs Basophils 0 10^3/uL N 0-0.2 Abs Nucleated RBC 0 10^3/uL N Granulocyte % 73.6 % N 38-83 Lymphocyte % 18.7 % Low 25-47 Monocyte % 6.0 % N 1-9 Eosinophil % 1.1 % N 0-6 Basophil % 0.6 % N 0-2 Nucleated Red Blood Cells % 0 N Comp Metabolic Panel 11/16/2016 [facility] Sodium 134 mmol/L N 133- 145 Potassium 3.8 mmol/L N 3.5-5.0 Chloride 103 mmol/L N 101-111 Co2 Carbon Dioxide 26 mmol/L N 22-32 Anion Gap 5 mmol/L N 2-11 Glucose 93 mg/dL N 70-100 Blood Urea Nitrogen 9 mg/dL N 6-24 Creatinine 0.55 mg/dL N 0.51-0.95 BUN/Creatinine Ratio 16.4 N 8-20 Calcium 9.1 mg/dL N 8.6-10.3 Total Protein 6.9 g/dL N 6.4-8.9 Albumin 3.9 g/dL N 3.2-5.2 Globulin 3.0 g/dL N 2-4 Albumin/Globulin Ratio 1.3 N 1-3 Total Bilirubin 0.30 mg/dL N 0.2-1.0 Alkaline Phosphatase 59 U/L N 34-104 Alt 11 U/L N 7-52 Ast 10 U/L Low 13-39 Egfr Non- 125.8 N >60 Egfr 161.8 N >60 71 Laboratory test 10/18/2016 [facility] HCG 57626.00 mIU/mL N 72 finding Basic Metabolic 10/18/2016 [facility] Sodium 137 mmol/L N 133-145 Panel Potassium 3.7 mmol/L N 3.5-5.0 Chloride 104 mmol/L N 101-111 Co2 Carbon Dioxide 27 mmol/L N 22-32 Anion Gap 6 mmol/L N 2-11 Glucose 94 mg/dL N 70-100 Blood Urea Nitrogen 10 mg/dL N 6-24 Creatinine 0.66 mg/dL N 0.51-0.95 BUN/Creatinine Ratio 15.2 N 8-20 Calcium 8.8 mg/dL N 8.6-10.3 Egfr Non- 101.9 N >60 Egfr 131.1 N >60 73 Laboratory test 10/02/2016 [facility] HCG 33.28 N 74 finding mIU/mL Laboratory test 10/02/2016 [facility] Progesterone 4.0 ng/mL N See 75 finding Note* Laboratory test 09/23/2015 [facility] Request Problem TNP 76, 77 finding Urine Cannabinoikd 09/23/2015 [facility] Cannabinoid See 78 BC/MS Comment: Carboxy THC (GC/MS) TNP 79 Benzodiazepines 09/23/2015 [facility] Benzodiazepines Positive Abnormal Laziyf=628 Screen,Urine ng/mL Nordiazepam Negative Oxazepam Negative Flurazepam Negative Lorazepam Negative Alprazolam Positive Abnormal Alprazolam Confirm 1040 ng/mL Sffgzv=166 80 Clonazepam Negative Temazepam Negative Triazolam Negative Midazolam Negative Monitor 09/23/2015 [facility] Amphetamine Negative ng/mL Cmxual=7224 14-Drug Class Screen, Urine Profile (MW) Barbiturates Screen, Urine Negative ng/mL Dbdoye=299 Benzodiazepines Screen, Urine See Final Result <SEE NOTE> ng/mL Bhnxbq=786 81 Cannabinoid Screen, Urine Negative ng/mL Cutoff=20 Cocaine (Metab.) Screen, Urine Negative ng/mL Yqyvxt=907 Opiate Screen, Urine Negative ng/mL Loiwks=649 82 Oxycodone/Oxymorphone, Urine Negative ng/mL Rbwkut=175 83 Phencyclidine Screen, Urine Negative ng/mL Cutoff=25 Methadone Screen, Urine Negative ng/mL Abewmn=136 Propoxyphene Screen, Urine Negative ng/mL Zjcgly=768 Meperidine Screen, Urine Negative ng/mL Pidbec=346 84 Tramadol Screen, Urine Negative ng/mL Jffuqj=066 Fentanyl, Urine Negative pg/mL Svmkfu=9737 85 Buprenorphine, Urine Negative ng/mL Cutoff=10 Creatinine, Urine 356.9 mg/dL High 20.0-300.0 Specific [employer] 1.019 pH, Urine 5.6 4.5-8.9 Please Note: See Comment: 86 Benzodiazepines 08/30/2015 [facility] Benzodiazepines Positive Abnormal Chxnce=428 87 Screen,Urine ng/mL Nordiazepam Negative Oxazepam Negative Flurazepam Negative Lorazepam Negative Alprazolam Positive Abnormal Alprazolam Confirm 149 ng/mL Huqxss=707 88 Clonazepam Negative Temazepam Negative Triazolam Negative Midazolam Negative Monitor 08/30/2015 [facility] Amphetamine Negative ng/mL Ykvjzy=5686 14-Drug Class Screen, Urine Profile (MW) Barbiturates Screen, Urine Negative ng/mL Ngdxtd=749 Benzodiazepines Screen, Urine See Final Result <SEE NOTE> ng/mL Bkefwc=273 89 Cannabinoid Screen, Urine Negative ng/mL Cutoff=20 Cocaine (Metab.) Screen, Urine Negative ng/mL Vecwbu=414 Opiate Screen, Urine Negative ng/mL Gqtvmk=230 90 Oxycodone/Oxymorphone, Urine Negative ng/mL Iznibi=730 91 Phencyclidine Screen, Urine Negative ng/mL Cutoff=25 Methadone Screen, Urine Negative ng/mL Kaowsd=498 Propoxyphene Screen, Urine Negative ng/mL Fqejlb=873 Meperidine Screen, Urine Negative ng/mL Hrdqkh=623 92 Tramadol Screen, Urine Negative ng/mL Zisjpl=854 Fentanyl, Urine Negative pg/mL Ygebcv=3214 93 Buprenorphine, Urine Negative ng/mL Cutoff=10 Creatinine, Urine 23.2 mg/dL 20.0-300.0 Specific [employer] 1.004 pH, Urine 6.7 4.5-8.9 Please Note: See Comment: 94 Monitor 04/21/2015 [facility] Amphetamine Negative ng/mL Dnauwo=5575 95 14-Drug Class Screen, Urine Profile (MW) Barbiturates Screen, Urine Negative ng/mL Srhxym=250 Benzodiazepines Screen, Urine Negative ng/mL Rwjhnr=663 Cannabinoid Screen, Urine Negative ng/mL Cutoff=20 Cocaine (Metab.) Screen, Urine Negative ng/mL Qdecsc=552 Opiate Screen, Urine Negative ng/mL Rhobce=819 96 Oxycodone/Oxymorphone, Urine Negative ng/mL Dfwkcv=945 97 Phencyclidine Screen, Urine Negative ng/mL Cutoff=25 Methadone Screen, Urine Negative ng/mL Xirogu=593 Propoxyphene Screen, Urine Negative ng/mL Elbcut=432 Meperidine Screen, Urine Negative ng/mL Ixnhbu=525 Tramadol Screen, Urine Negative ng/mL Fbkwka=044 Fentanyl, Urine Negative pg/mL Bvhtfg=5072 98 Buprenorphine, Urine Negative ng/mL Cutoff=10 Creatinine, Urine 101.8 mg/dL 20.0-300.0 Specific [employer] 1.018 pH, Urine 6.8 4.5-8.9 Please Note: See Comment: 99 Monitor 03/31/2015 [facility] Amphetamine Negative ng/mL Upuvcg=6331 100 14-Drug Class Screen, Urine Profile (MW) Barbiturates Screen, Urine Negative ng/mL Vtwhlo=658 Benzodiazepines Screen, Urine Negative ng/mL Cbxkuc=506 Cannabinoid Screen, Urine Negative ng/mL Cutoff=20 Cocaine (Metab.) Screen, Urine Negative ng/mL Nmrufx=818 Opiate Screen, Urine Negative ng/mL Vsektk=102 101 Oxycodone/Oxymorphone, Urine Negative ng/mL Gobwbj=974 102 Phencyclidine Screen, Urine Negative ng/mL Cutoff=25 Methadone Screen, Urine Negative ng/mL Qrrrgs=179 Propoxyphene Screen, Urine Negative ng/mL Ufvdbz=767 Meperidine Screen, Urine Negative ng/mL Dehyox=122 Tramadol Screen, Urine Negative ng/mL Rtvoxe=236 Fentanyl, Urine Negative pg/mL Vieewc=2192 103 Buprenorphine, Urine Negative ng/mL Cutoff=10 Creatinine, Urine 128.2 mg/dL 20.0-300.0 Specific [employer] 1.028 pH, Urine 6.3 4.5-8.9 Please Note: See Comment: 104 [facility] See Comment: 105 finding 1 SEE RESULT BELOW Name: MARGRET FAIRCHILD : [address]: Henry Soria MD Acct: [id number] Unit: [id number] AGE: 38 Location: [facility] Re08/28/18 SEX: F Status: REG REF SPEC: [id number] PABLO: 08/28/18-160 [facility] DR: Henry Soria MD REQ: [id number] RECD: 08/29/18 STATUS: [place] DR: Sudhakar Vargas MD _ ORDERED: TP IMAGE ANALYS, HPV/Thin Prep COMMENTS: [id number] EPITHELIAL CELL ABNORMALITIES Atypical squamous cells of [...] and Reported on: Natalie Ricardo MD 09/03/18 1438 This Pap test was evaluated with the assistance of the [employer] Test Imaging System. Due to cytologic findings at the commercial attache microscope, comprehensive manual rescreening by a Director Of Individual Giving may be required. The Pap Smear is [...] years. END OF REPORT DEPARTMENT OF PATHOLOGY, [address] [place] [address] Jake Sanchez M.D. Director [facility] # [id number] 2 Prescribed Medications: Amphetamine (Amphetamine), Dextroamphetamine sulfate (Amphetamine), Alprazolam (Alprazolam), Lexapro (Citalopram/Escitalopram), Ibuprofen ( Ibuprofen) 3 Prescribed Medications: Amphetamine (Amphetamine), Dextroamphetamine sulfate (Amphetamine), Alprazolam (Alprazolam), Lexapro (Citalopram/Escitalopram ), Ibuprofen (Ibuprofen) 4 Prescribed Medications: Amphetamine (Amphetamine), Dextroamphetamine sulfate (Amphetamine), Alprazolam (Alprazolam), Lexapro (Citalopram/Escitalopram ), Ibuprofen (Ibuprofen) 5 Negative Inconsistent Prescribed Medications: Amphetamine (Amphetamine), Dextroamphetamine sulfate (Amphetamine), Alprazolam (Alprazolam), Lexapro (Citalopram/Escitalopram), Ibuprofen (Ibuprofen) 6 Prescribed Medications: Amphetamine (Amphetamine), Dextroamphetamine sulfate (Amphetamine), Alprazolam (Alprazolam), Lexapro (Citalopram/Escitalopram ), Ibuprofen (Ibuprofen) 7 Prescribed Medications: Amphetamine (Amphetamine), Dextroamphetamine sulfate (Amphetamine), Alprazolam (Alprazolam), Lexapro (Citalopram/Escitalopram ), Ibuprofen (Ibuprofen) 8 Positive >5000 Consistent Amphetamine is a metabolite of methamphetamine or lisdexamfetamine. Its presence is consistent with methamphetamine (Desoxyn) medication. Amphetamine ( Adderall) is also available as a prescription medication. 9 Prescribed Medications: Amphetamine (Amphetamine), Dextroamphetamine sulfate (Amphetamine), Alprazolam (Alprazolam), Lexapro (Citalopram/Escitalopram ), Ibuprofen (Ibuprofen) 10 Prescribed Medications: Amphetamine (Amphetamine), Dextroamphetamine sulfate (Amphetamine), Alprazolam (Alprazolam), Lexapro (Citalopram/Escitalopram ), Ibuprofen (Ibuprofen) 11 Prescribed Medications: Amphetamine (Amphetamine), Dextroamphetamine sulfate (Amphetamine), Alprazolam (Alprazolam), Lexapro (Citalopram/Escitalopram ), Ibuprofen (Ibuprofen) 12 Prescribed Medications: Amphetamine (Amphetamine), Dextroamphetamine sulfate (Amphetamine), Alprazolam (Alprazolam), Lexapro (Citalopram/Escitalopram ), Ibuprofen (Ibuprofen) 13 Prescribed Medications: Amphetamine (Amphetamine), Dextroamphetamine sulfate (Amphetamine), Alprazolam (Alprazolam), Lexapro (Citalopram/Escitalopram ), Ibuprofen (Ibuprofen) 14 167 Positive Consistent 15 576 Positive Consistent Alpha-hydroxyalprazolam is a metabolite of Alprazolam (Xanax). 16 Prescribed Medications: Amphetamine (Amphetamine), Dextroamphetamine sulfate (Amphetamine), Alprazolam (Alprazolam), Lexapro (Citalopram/Escitalopram ), Ibuprofen (Ibuprofen) 17 Prescribed Medications: Amphetamine (Amphetamine), Dextroamphetamine sulfate (Amphetamine), Alprazolam (Alprazolam), Lexapro (Citalopram/Escitalopram ), Ibuprofen (Ibuprofen) 18 Prescribed Medications: Amphetamine (Amphetamine), Dextroamphetamine sulfate (Amphetamine), Alprazolam (Alprazolam), Lexapro (Citalopram/Escitalopram ), Ibuprofen (Ibuprofen) 19 Prescribed Medications: Amphetamine (Amphetamine), Dextroamphetamine sulfate (Amphetamine), Alprazolam (Alprazolam), Lexapro (Citalopram/Escitalopram ), Ibuprofen (Ibuprofen) 20 Prescribed Medications: Dextroamphetamine sulfate (Amphetamine), Alprazolam (Alprazolam), Lexapro (Citalopram/Escitalopram), Ibuprofen (Ibuprofen) 21 1510 Positive Inconsistent 22 Prescribed Medications: Dextroamphetamine sulfate (Amphetamine), Alprazolam (Alprazolam), Lexapro (Citalopram/Escitalopram), Ibuprofen (Ibuprofen ) 23 Prescribed Medications: Dextroamphetamine sulfate (Amphetamine), Alprazolam (Alprazolam), Lexapro (Citalopram/Escitalopram), Ibuprofen (Ibuprofen ) 24 Negative Inconsistent Prescribed Medications: Dextroamphetamine sulfate (Amphetamine), Alprazolam ( Alprazolam), Lexapro (Citalopram/Escitalopram), Ibuprofen (Ibuprofen) 25 Prescribed Medications: Dextroamphetamine sulfate (Amphetamine), Alprazolam (Alprazolam), Lexapro (Citalopram/Escitalopram), Ibuprofen (Ibuprofen ) 26 Prescribed Medications: Dextroamphetamine sulfate (Amphetamine), Alprazolam (Alprazolam), Lexapro (Citalopram/Escitalopram), Ibuprofen (Ibuprofen ) 27 Positive >5000 Consistent Amphetamine is a metabolite of methamphetamine or lisdexamfetamine. Its presence is consistent with methamphetamine (Desoxyn) medication. Amphetamine ( Adderall) is also available as a prescription medication. 28 Prescribed Medications: Dextroamphetamine sulfate (Amphetamine), Alprazolam (Alprazolam), Lexapro (Citalopram/Escitalopram), Ibuprofen (Ibuprofen ) 29 Prescribed Medications: Dextroamphetamine sulfate (Amphetamine), Alprazolam (Alprazolam), Lexapro (Citalopram/Escitalopram), Ibuprofen (Ibuprofen ) 30 Prescribed Medications: Dextroamphetamine sulfate (Amphetamine), Alprazolam (Alprazolam), Lexapro (Citalopram/Escitalopram), Ibuprofen (Ibuprofen ) 31 Prescribed Medications: Dextroamphetamine sulfate (Amphetamine), Alprazolam (Alprazolam), Lexapro (Citalopram/Escitalopram), Ibuprofen (Ibuprofen ) 32 Prescribed Medications: Dextroamphetamine sulfate (Amphetamine), Alprazolam (Alprazolam), Lexapro (Citalopram/Escitalopram), Ibuprofen (Ibuprofen ) 33 72 Positive Consistent 34 169 Positive Consistent Alpha-hydroxyalprazolam is a metabolite of Alprazolam (Xanax). 35 Prescribed Medications: Dextroamphetamine sulfate (Amphetamine), Alprazolam (Alprazolam), Lexapro (Citalopram/Escitalopram), Ibuprofen (Ibuprofen ) 36 Prescribed Medications: Dextroamphetamine sulfate (Amphetamine), Alprazolam (Alprazolam), Lexapro (Citalopram/Escitalopram), Ibuprofen (Ibuprofen ) 37 Prescribed Medications: Dextroamphetamine sulfate (Amphetamine), Alprazolam (Alprazolam), Lexapro (Citalopram/Escitalopram), Ibuprofen (Ibuprofen ) 38 Prescribed Medications: Dextroamphetamine sulfate (Amphetamine), Alprazolam (Alprazolam), Lexapro (Citalopram/Escitalopram), Ibuprofen (Ibuprofen ) 39 Prescribed Medications: Amphetamine (Amphetamine), Dextroamphetamine sulfate (Amphetamine), Alprazolam (Alprazolam), Escitalopram (Citalopram/Escitalopram), Ibuprofen ( Ibuprofen) 40 Prescribed Medications: Amphetamine (Amphetamine), Dextroamphetamine sulfate (Amphetamine), Alprazolam (Alprazolam), Escitalopram (Citalopram/ Escitalopram), Ibuprofen (Ibuprofen) 41 Prescribed Medications: Amphetamine (Amphetamine), Dextroamphetamine sulfate (Amphetamine), Alprazolam (Alprazolam), Escitalopram (Citalopram/ Escitalopram), Ibuprofen (Ibuprofen) 42 Positive >1000 Consistent 43 359 Positive Consistent AlphaHydroxy-Alprazolam is a metabolite of Alprazolam (Xanax). 44 Prescribed Medications: Amphetamine (Amphetamine), Dextroamphetamine sulfate (Amphetamine), Alprazolam (Alprazolam), Escitalopram (Citalopram/ Escitalopram), Ibuprofen (Ibuprofen) 45 Prescribed Medications: Amphetamine (Amphetamine), Dextroamphetamine sulfate (Amphetamine), Alprazolam (Alprazolam), Escitalopram (Citalopram/ Escitalopram), Ibuprofen (Ibuprofen) 46 Prescribed Medications: Amphetamine (Amphetamine), Dextroamphetamine sulfate (Amphetamine), Alprazolam (Alprazolam), Escitalopram (Citalopram/ Escitalopram), Ibuprofen (Ibuprofen) 47 Prescribed Medications: Amphetamine (Amphetamine), Dextroamphetamine sulfate (Amphetamine), Alprazolam (Alprazolam), Escitalopram (Citalopram/ Escitalopram), Ibuprofen (Ibuprofen) 48 Positive >5000 Consistent Amphetamine is a metabolite of methamphetamine or lisdexamfetamine. Its presence is consistent with methamphetamine (Desoxyn) medication. Amphetamine ( Adderall) is also available as a prescription medication. 49 Prescribed Medications: Amphetamine (Amphetamine), Dextroamphetamine sulfate (Amphetamine), Alprazolam (Alprazolam), Escitalopram (Citalopram/ Escitalopram), Ibuprofen (Ibuprofen) 50 Prescribed Medications: Amphetamine (Amphetamine), Dextroamphetamine sulfate (Amphetamine), Alprazolam (Alprazolam), Escitalopram (Citalopram/ Escitalopram), Ibuprofen (Ibuprofen) 51 Prescribed Medications: Amphetamine (Amphetamine), Dextroamphetamine sulfate (Amphetamine), Alprazolam (Alprazolam), Escitalopram (Citalopram/ Escitalopram), Ibuprofen (Ibuprofen) 52 Prescribed Medications: Amphetamine (Amphetamine), Dextroamphetamine sulfate (Amphetamine), Alprazolam (Alprazolam), Escitalopram (Citalopram/ Escitalopram), Ibuprofen (Ibuprofen) 53 Antidepressants, citalopram, and EIA testing cannot be performed due to insufficient quantity received. 54 Because ethnic data is not always readily available, this report includes an eGFR for both -Americans and non- Americans. The National Kidney Disease Education Program (NKDEP) does not endorse the use of the MDRD equation for patients that are not between the ages of 18 and 70, are , have extremes of body size, muscle mass, or nutritional status, or are non- or non-. According to the National Kidney Foundation, irrespective of diagnosis, the stage of the disease is based on the level of kidney function: Stage Description GFR(mL/min/1.73 m(2)) 1 Kidney damage with normal or decreased GFR 90 2 Kidney damage with mild decrease in GFR 60-89 3 Moderate decrease in GFR 30-59 4 Severe decrease in GFR 15-29 5 Kidney failure <15 (or dialysis) 55 Prescribed Medications: Alprazolam (Alprazolam), Escitalopram (Citalopram/ Escitalopram), Ibuprofen (Ibuprofen) 56 Prescribed Medications: Alprazolam (Alprazolam), Escitalopram (Citalopram/ Escitalopram), Ibuprofen (Ibuprofen) 57 Prescribed Medications: Alprazolam (Alprazolam), Escitalopram (Citalopram/ Escitalopram), Ibuprofen (Ibuprofen) 58 Prescribed Medications: Alprazolam (Alprazolam), Escitalopram (Citalopram/ Escitalopram), Ibuprofen (Ibuprofen) 59 Negative Inconsistent Prescribed Medications: Alprazolam (Alprazolam), Escitalopram (Citalopram/ Escitalopram), Ibuprofen (Ibuprofen) 60 Prescribed Medications: Alprazolam (Alprazolam), Escitalopram (Citalopram/ Escitalopram), Ibuprofen (Ibuprofen) 61 Prescribed Medications: Alprazolam (Alprazolam), Escitalopram (Citalopram/ Escitalopram), Ibuprofen (Ibuprofen) 62 Prescribed Medications: Alprazolam (Alprazolam), Escitalopram (Citalopram/ Escitalopram), Ibuprofen (Ibuprofen) 63 Prescribed Medications: Alprazolam (Alprazolam), Escitalopram (Citalopram/ Escitalopram), Ibuprofen (Ibuprofen) 64 Positive Consistent 65 Positive Consistent AlphaHydroxy-Alprazolam is a metabolite of Alprazolam (Xanax). 66 Prescribed Medications: Alprazolam (Alprazolam), Escitalopram (Citalopram/ Escitalopram), Ibuprofen (Ibuprofen) 67 Prescribed Medications: Alprazolam (Alprazolam), Escitalopram (Citalopram/ Escitalopram), Ibuprofen (Ibuprofen) 68 Prescribed Medications: Alprazolam (Alprazolam), Escitalopram (Citalopram/ Escitalopram), Ibuprofen (Ibuprofen) 69 Prescribed Medications: Alprazolam (Alprazolam), Escitalopram (Citalopram/ Escitalopram), Ibuprofen (Ibuprofen) 70 Prescribed Medications: Alprazolam (Alprazolam), Escitalopram (Citalopram/ Escitalopram), Ibuprofen (Ibuprofen) 71 Because ethnic data is not always readily available, this report includes an eGFR for both -Americans and non- Americans. The National Kidney Disease Education Program (NKDEP) does not endorse the use of the MDRD equation for patients that are not between the ages of 18 and 70, are , have extremes of body size, muscle mass, or nutritional status, or are non- or non-. According to the National Kidney Foundation, irrespective of diagnosis, the stage of the disease is based on the level of kidney function: Stage Description GFR(mL/min/1.73 m(2)) 1 Kidney damage with normal or decreased GFR 90 2 Kidney damage with mild decrease in GFR 60-89 3 Moderate decrease in GFR 30-59 4 Severe decrease in GFR 15-29 5 Kidney failure <15 (or dialysis) 72 <5.0 Negative 5.0 - 25.0 Indeterminate (Repeat testing recommended after 72 hours) >25.0 Positive Perimenopausal women can display HCG levels of up to 20 mIU/mL 73 Because ethnic data is not always readily available, this report includes an eGFR for both -Americans and non- Americans. The National Kidney Disease Education Program (NKDEP) does not endorse the use of the MDRD equation for patients that are not between the ages of 18 and 70, are , have extremes of body size, muscle mass, or nutritional status, or are non- or non-. According to the National Kidney Foundation, irrespective of diagnosis, the stage of the disease is based on the level of kidney function: Stage Description GFR(mL/min/1.73 m(2)) 1 Kidney damage with normal or decreased GFR 90 2 Kidney damage with mild decrease in GFR 60-89 3 Moderate decrease in GFR 30-59 4 Severe decrease in GFR 15-29 5 Kidney failure <15 (or dialysis) 74 <5.0 Negative 5.0 - 25.0 Indeterminate (Repeat testing recommended after 72 hours) >25.0 Positive Perimenopausal women can display HCG levels of up to 20 mIU/mL 75 Reference intervals are central 90th % of healthy population. Follicular phase: <=0.89 ng/mL Ovulation: <=12 ng/mL Luteal phase: 1.8-24 ng/ml Post-menopausal: <0.20 ng/mL 1st Trimester: 11-44 ng/mL 2nd Trimester: 25-83 ng/mL 3rd Trimester: 58-214 ng/mL Test Performed by: [facility] [address] [place] [address] 76 [id number] Duplicate procedure ordered. TEST: [id number] Cannabinoid (GC/MS), Urine 78 Drug analysis not performed. Please contact laboratory. 79 Test not performed 80 Alprazolam detected; this finding is consistent with use of medications that include Xanax, or generic formulations. Drugs listed are national sales representative of common sources of the compound detected and are not intended to include all possible sources. 81 See Final Results Drug brands, if listed herein, are trademarks of their respective owners. 82 Opiate test includes Codeine, Morphine, Hydromorphone, Hydrocodone. 83 Test includes Oxycodone and Oxymorphone 84 This test was developed and its performance characteristics determined by [employer]. It has not been cleared or approved by the Food and Drug Administration. 85 Test includes Fentanyl and Norfentanyl This test was developed and its performance characteristics determined by [employer]. It has not been cleared or approved by the Food and Drug Administration. 86 Drug-test results should be interpreted in the context of clinical information. Patient metabolic variables, specific drug chemistry, and specimen characteristics can affect test outcome. Technical consultation is available if a test result is inconsistent with an expected outcome. ([email or web address] or call toll-free [phone]) Drug brands, if listed herein, are trademarks of their respective owners. 87 [id number] Alprazolam detected; this finding is consistent with use of medications that include Xanax, or generic formulations. Drugs listed are national sales representative of common sources of the compound detected and are not intended to include all possible sources. 89 See Final Results Drug brands, if listed herein, are trademarks of their respective owners. 90 Opiate test includes Codeine, Morphine, Hydromorphone, Hydrocodone. 91 Test includes Oxycodone and Oxymorphone 92 This test was developed and its performance characteristics determined by [employer]. It has not been cleared or approved by the Food and Drug Administration. 93 Test includes Fentanyl and Norfentanyl This test was developed and its performance characteristics determined by [employer]. It has not been cleared or approved by the Food and Drug Administration. 94 Drug-test results should be interpreted in the context of clinical information. Patient metabolic variables, specific drug chemistry, and specimen characteristics can affect test outcome. Technical consultation is available if a test result is inconsistent with an expected outcome. (email-[email or web address] or call [employer] [phone]) Drug brands, if listed herein, are trademarks of their respective owners. 95 [id number] 96 Opiate test includes Codeine, Morphine, Hydromorphone, Hydrocodone. 97 Test includes Oxycodone and Oxymorphone 98 Test includes Fentanyl and Norfentanyl 99 Drug-test results should be interpreted in the context of clinical information. Patient metabolic variables, specific drug chemistry, and specimen characteristics can affect test outcome. Technical consultation is available if a test result is inconsistent with an expected outcome. (email-[email or web address] or call [employer] [phone]) Drug brands, if listed herein, are trademarks of their respective owners. 10 [id number] 0 10 Opiate test includes Codeine, Morphine, Hydromorphone, Hydrocodone. 1 10 Test includes Oxycodone and Oxymorphone 2 10 Test includes Fentanyl and Norfentanyl 3 10 Drug-test results should be interpreted in the context of clinical 4 information. Patient metabolic variables, specific drug chemistry, and specimen characteristics can affect test outcome. Technical consultation is available if a test result is inconsistent with an expected outcome. ([email or web address] or call [facility] [phone]) Drug brands, if listed herein, are trademarks of their respective owners. 10 Written Authorization Received. 5 Authorization received from [employer] 04-14-2015 Logged by Olivia Myles Procedures Date Code Description Status 08/27/2018 14231 Visual Screening Test Completed 08/27/2018 68041 Audiometry, Bekesy, Screening Completed 04/23/2018 78236 Spirometry Completed 04/23/2018 28697 Tympanometry Completed 02/21/2018 99305 Spirometry Completed 02/21/2018 62172 Tympanometry Completed 07/26/2017 59961 Visual Screening Test Completed 07/26/2017 02619 Audiometry, Bekesy, Screening Completed 06/27/2017 57902 Spirometry Completed 06/27/2017 14700 Tympanometry Completed 05/30/2017 66777 Spirometry Completed 05/30/2017 00117 Tympanometry Completed 10/22/2015 80355 Spirometry Completed 10/22/2015 29946 Tympanometry Completed 03/31/2015 94541 Visual Screening Test Completed 03/31/2015 11757 Audiometry, Bekesy, Screening Completed Encounters Type Date Location Provider Dx Diagnosis Office Visit 10/01/2018 [facility] Sudhakar Vargas L20.9 Atopic dermatitis, 11:45a Laci unspecified J30.9 Allergic rhinitis, unspecified J44.9 Chronic obstructive pulmonary disease, unspecified F17.210 Nicotine dependence, cigarettes, uncomplicated R73.01 Impaired fasting glucose F41.9 Anxiety disorder, unspecified F33.9 Major depressive disorder, recurrent, unspecified G47.00 Insomnia, unspecified F90.0 Attn-defct hyperactivity disorder, predom inattentive type K64.9 Unspecified hemorrhoids Z79.899 Other skilled nursing (current) drug therapy R80.9 Proteinuria, unspecified H52.12 Myopia, left eye R87.618 Ot abnormal cytolog findings on specimens from cervix uteri Office Visit 08/27/2018 10:30a [facility] Sudhakar Vargas L20.9 Nixon Rodriguez M.D. unspecified J30.9 Allergic rhinitis, unspecified J44.9 Chronic obstructive pulmonary disease, unspecified F17.210 Nicotine dependence, cigarettes, uncomplicated R73.01 Impaired fasting glucose F41.9 Anxiety disorder, unspecified F33.9 Major depressive disorder, recurrent, unspecified G47.00 Insomnia, unspecified F90.0 Attn-defct hyperactivity disorder, predom inattentive type K64.9 Unspecified hemorrhoids Z79.899 Other skilled nursing (current) drug therapy R80.9 Proteinuria, unspecified Z00.01 Encounter for general adult medical exam w abnormal findings H52.12 Myopia, left eye Office Visit 07/25/2018 9:45a [facility] Sudhakar Vargas L20.9 Atopic dermatitis, M., M.D. unspecified J30.9 Allergic rhinitis, unspecified J44.9 Chronic obstructive pulmonary disease, unspecified F17.210 Nicotine dependence, cigarettes, uncomplicated R73.01 Impaired fasting glucose F41.9 Anxiety disorder, unspecified F33.9 Major depressive disorder, recurrent, unspecified G47.00 Insomnia, unspecified F90.0 Attn-defct hyperactivity disorder, predom inattentive type R80.9 Proteinuria, unspecified K64.9 Unspecified hemorrhoids Z79.899 Other skilled nursing (current) drug therapy Office Visit 06/25/2018 9:30a [facility] Sudhakar Vargas L20.Alex Atopic Nixon chritsie M.D. unspecified J30.9 Allergic rhinitis, unspecified J44.9 Chronic obstructive pulmonary disease, unspecified F17.210 Nicotine dependence, cigarettes, uncomplicated R73.01 Impaired fasting glucose F41.9 Anxiety disorder, unspecified F33.9 Major depressive disorder, recurrent, unspecified G47.00 Insomnia, unspecified F90.0 Attn-defct hyperactivity disorder, predom inattentive type R80.9 Proteinuria, unspecified K64.9 Unspecified hemorrhoids Z79.899 Other skilled nursing (current) drug therapy Office Visit 05/23/2018 10:00a [facility] Sudhakar Vargas L20.Nixon Rushing M.D. unspecified J30.9 Allergic rhinitis, unspecified J44.9 Chronic obstructive pulmonary disease, unspecified F17.210 Nicotine dependence, cigarettes, uncomplicated R73.01 Impaired fasting glucose F41.9 Anxiety disorder, unspecified F33.9 Major depressive disorder, recurrent, unspecified G47.00 Insomnia, unspecified F90.0 Attn-defct hyperactivity disorder, predom inattentive type Z79.899 Other terminal superintendent (current) drug therapy R80.9 Proteinuria, unspecified K64.9 Unspecified hemorrhoids J20.9 Acute bronchitis, unspecified J01.40 Acute pansinusitis, unspecified H66.93 Otitis media, unspecified, bilateral R06.02 Shortness of breath R05 Cough R09.81 Nasal congestion [facility] Atopic dermatitis, M., M.D. unspecified J30.9 Allergic rhinitis, unspecified J44.9 Chronic obstructive pulmonary disease, unspecified F17.210 Nicotine dependence, cigarettes, uncomplicated R73.01 Impaired fasting glucose F41.9 Anxiety disorder, unspecified F33.9 Major depressive disorder, recurrent, unspecified G47.00 Insomnia, unspecified F90.0 Attn-defct hyperactivity disorder, predom inattentive type Z79.899 Other skilled nursing (current) drug therapy R80.9 Proteinuria, unspecified K64.9 Unspecified hemorrhoids J20.9 Acute bronchitis, unspecified J01.40 Acute pansinusitis, unspecified H66.93 Otitis media, unspecified, bilateral R06.02 Shortness of breath R05 Cough R09.81 Nasal congestion Office Visit 03/21/2018 11:30a [facility] Sudhakar Vargas F41.Alex Anxiety disorderNixon M.D. unspecified F33.9 Major depressive disorder, recurrent, unspecified G47.00 Insomnia, unspecified F17.210 Nicotine dependence, cigarettes, uncomplicated F90.0 Attn-defct hyperactivity disorder, predom inattentive type L20.9 Atopic dermatitis, unspecified J30.9 Allergic rhinitis, unspecified Z79.899 Other skilled nursing (current) drug therapy R80.9 Proteinuria, unspecified R73.01 Impaired fasting glucose J20.9 Acute bronchitis, unspecified J01.40 Acute pansinusitis, unspecified H66.93 Otitis media, unspecified, bilateral R06.02 Shortness of breath R05 Cough R09.81 Nasal congestion K64.9 Unspecified hemorrhoids Office Visit 02/21/2018 1:00p [facility] Sudahkar Vargas F41.Alex Anxiety disorderNixon M.D. unspecified F33.9 Major depressive disorder, recurrent, unspecified G47.00 Insomnia, unspecified F17.210 Nicotine dependence, cigarettes, uncomplicated F90.0 Attn-defct hyperactivity disorder, predom inattentive type L20.9 Atopic dermatitis, unspecified J30.9 Allergic rhinitis, unspecified Z79.899 Other skilled nursing (current) drug therapy R80.9 Proteinuria, unspecified R73.01 Impaired fasting glucose J20.9 Acute bronchitis, unspecified J01.40 Acute pansinusitis, unspecified H66.93 Otitis media, unspecified, bilateral R06.02 Shortness of breath R05 Cough R09.81 Nasal congestion K64.9 Unspecified hemorrhoids [facility].9 Anxiety disorderNixon M.D. unspecified F33.9 Major depressive disorder, recurrent, unspecified G47.00 Insomnia, unspecified F17.210 Nicotine dependence, cigarettes, uncomplicated F90.0 Attn-defct hyperactivity disorder, predom inattentive type L20.9 Atopic dermatitis, unspecified J30.9 Allergic rhinitis, unspecified Z79.899 Other terminal superintendent (current) drug therapy R80.9 Proteinuria, unspecified R73.01 Impaired fasting glucose Office Visit 12/20/2017 1:00p [facility] Sam, Swatijewel F41.9 Anxiety disorder, Marti Alicea. unspecified F33.9 Major depressive disorder, recurrent, unspecified G47.00 Insomnia, unspecified F17.210 Nicotine dependence, cigarettes, uncomplicated F90.0 Attn-defct hyperactivity disorder, predom inattentive type L20.9 Atopic dermatitis, unspecified J30.9 Allergic rhinitis, unspecified Z79.899 Other terminal superintendent (current) drug therapy R80.9 Proteinuria, unspecified R73.01 Impaired fasting glucose [facility]19[facility]2017 [facility].9 Anxiety disorder, Marti Alicea. unspecified F33.9 Major depressive disorder, recurrent, unspecified G47.00 Insomnia, unspecified F17.210 Nicotine dependence, cigarettes, uncomplicated F90.0 Attn-defct hyperactivity disorder, predom inattentive type L20.9 Atopic dermatitis, unspecified J30.9 Allergic rhinitis, unspecified Z79.899 Other skilled nursing (current) drug therapy R80.9 Proteinuria, unspecified R73.01 Impaired fasting glucose Office Visit 10/19/2017 [facility] F41.9 Anxiety disorder, Marti Alicea. unspecified F33.9 Major depressive disorder, recurrent, unspecified G47.00 Insomnia, unspecified F17.210 Nicotine dependence, cigarettes, uncomplicated F90.0 Attn-defct hyperactivity disorder, predom inattentive type L20.9 Atopic dermatitis, unspecified J30.9 Allergic rhinitis, unspecified Z79.899 Other terminal superintendent (current) drug therapy R80.9 Proteinuria, unspecified R73.01 Impaired fasting glucose Office Visit 09/24/2017 11:30a [facility] Sudhakar Vargas F41.9 Anxiety disorderNixon M.D. unspecified F33.9 Major depressive disorder, recurrent, unspecified G47.00 Insomnia, unspecified F17.210 Nicotine dependence, cigarettes, uncomplicated F90.0 Attn-defct hyperactivity disorder, predom inattentive type L20.9 Atopic dermatitis, unspecified J30.9 Allergic rhinitis, unspecified Z79.899 Other skilled nursing (current) drug therapy R80.9 Proteinuria, unspecified R73.01 Impaired fasting glucose Z01.818 Encounter for other preprocedural examination Office Visit 08/27/2017 3:00p [facility] Orestes F41.9 Anxiety disorder, SENG Horne unspecified F33.9 Major depressive disorder, recurrent, unspecified G47.00 Insomnia, unspecified F17.210 Nicotine dependence, cigarettes, uncomplicated F90.0 Attn-defct hyperactivity disorder, predom inattentive type L20.9 Atopic dermatitis, unspecified J30.9 Allergic rhinitis, unspecified Z79.899 Other skilled nursing (current) drug therapy R80.9 Proteinuria, unspecified R73.01 Impaired fasting glucose Office Visit 07/26/2017 1:30p [facility] Orestes F41.9 Anxiety disorder, SENG Horne unspecified F33.9 Major depressive disorder, recurrent, unspecified G47.00 Insomnia, unspecified F17.210 Nicotine dependence, cigarettes, uncomplicated F90.0 Attn-defct hyperactivity disorder, predom inattentive type L20.9 Atopic dermatitis, unspecified J30.9 Allergic rhinitis, unspecified Z00.01 Encounter for general adult medical exam w abnormal findings Z79.899 Other skilled nursing (current) drug therapy R80.9 Proteinuria, unspecified Z68.25 Body mass index (BMI) 25.0-25.9, adult Office Visit 06/27/2017 1:45p [facility] Mian Nassar F41.9 Anxiety disorder, DIRECTOR COLLEGE unspecified F33.9 Major depressive disorder, recurrent, unspecified G47.00 Insomnia, unspecified F17.210 Nicotine dependence, cigarettes, uncomplicated F90.0 Attn-defct hyperactivity disorder, predom inattentive type J06.9 Acute upper respiratory infection, unspecified R05 Cough H66.90 Otitis media, unspecified, unspecified ear Office Visit 05/30/2017 2:00p [facility] Mian Nassar F41.9 Anxiety disorder, DIRECT[employer] unspecified F33.9 Major depressive disorder, recurrent, unspecified G47.00 Insomnia, unspecified F17.210 Nicotine dependence, cigarettes, uncomplicated F90.0 Attn-defct hyperactivity disorder, predom inattentive type J01.80 Other acute sinusitis R05 Cough H66.90 Otitis media, unspecified, unspecified ear Office Visit 10/18/2016 10:15a [facility] Sudhakar Vargas F41.9 Anxiety disorderNixon M.D. unspecified F33.9 Major depressive disorder, recurrent, unspecified G47.00 Insomnia, unspecified F17.210 Nicotine dependence, cigarettes, uncomplicated F90.0 Attn-defct hyperactivity disorder, predom inattentive type L20.9 Atopic dermatitis, unspecified J30.9 Allergic rhinitis, unspecified Z33.1 state, incidental N93.8 Other specified abnormal uterine and vaginal bleeding Office Visit 10/02/2016 4:00p [facility] Mian Nassar N91.0 Primary amenorrhea [employer] G47.00 Insomnia, unspecified Office Visit 02/16/2016 2:15p [facility] Mian Nassar F41.9 Anxiety disorder, DIRECT[employer] unspecified F33.9 Major depressive disorder, recurrent, unspecified G47.00 Insomnia, unspecified F17.210 Nicotine dependence, cigarettes, uncomplicated Office Visit 01/19/2016 2:15p [facility] Mian Nassar F41.9 Anxiety disorder, DIRECT[employer] unspecified F33.9 Major depressive disorder, recurrent, unspecified G47.00 Insomnia, unspecified F17.210 Nicotine dependence, cigarettes, uncomplicated Office Visit 12/08/2015 3:45p [facility] Sudhakar Vargas J20.9 Acute bronchitis, Laci Alicea unspecified J01.40 Acute pansinusitis, unspecified H66.93 Otitis media, unspecified, bilateral R06.02 Shortness of breath R05 Cough R09.81 Nasal congestion F17.210 Nicotine dependence, cigarettes, uncomplicated F41.9 Anxiety disorder, unspecified F33.9 Major depressive disorder, recurrent, unspecified G47.00 Insomnia, unspecified R51 Headache Z79.899 Other terminal superintendent (current) drug therapy F90.0 Attn-defct hyperactivity disorder, predom inattentive type Office Visit 10/22/2015 10:30a [facility] Sudhakar Vargas J20.9 Acute bronchitis, M., M.D. unspecified J01.40 Acute pansinusitis, unspecified H66.93 Otitis media, unspecified, bilateral R06.02 Shortness of breath R05 Cough R09.81 Nasal congestion F17.210 Nicotine dependence, cigarettes, uncomplicated F41.9 Anxiety disorder, unspecified F33.9 Major depressive disorder, recurrent, unspecified G47.00 Insomnia, unspecified R51 Headache Z79.899 Other skilled nursing (current) drug therapy F90.0 Attn-defct hyperactivity disorder, predom inattentive type Office Visit 10/06/2015 10:00a [facility] Mian Nassar F41.9 Anxiety disorder, DIRECT[employer]LE[employer] unspecified F33.9 Major depressive disorder, recurrent, unspecified G47.00 Insomnia, unspecified R51 Headache F17.210 Nicotine dependence, cigarettes, uncomplicated Office Visit 09/23/2015 1:30p Mian Schilling [employer] F41.9 Anxiety disorder, unspecified F33.9 Major depressive disorder, recurrent, unspecified G47.00 Insomnia, unspecified R51 Headache F17.210 Nicotine dependence, cigarettes, uncomplicated F90.0 Attn-defct hyperactivity disorder, predom inattentive type Z79.899 Other skilled nursing (current) drug therapy Office Visit 08/30/2015 9:30a [facility] Mian Nassar F41.9 Anxiety disorder, DIRECTOR [employer]LE[employer] unspecified F33.9 Major depressive disorder, recurrent, unspecified G47.00 Insomnia, unspecified R51 Headache F17.210 Nicotine dependence, cigarettes, uncomplicated F90.0 Attn-defct hyperactivity disorder, predom inattentive type Office Visit 08/13/2015 11:15a [facility] Sudhakar Vargas, N96 Recurrent M.D. loss F41.9 Anxiety disorder, unspecified F33.9 Major depressive disorder, recurrent, unspecified G47.00 Insomnia, unspecified R51 Headache F17.210 Nicotine dependence, cigarettes, uncomplicated F90.0 Attn-defct hyperactivity disorder, predom inattentive type R53.83 Other fatigue Office Visit 06/23/2015 11:30a [facility] Mian Nassar F41.9 Anxiety disorder, DIRECT[employer]LE[employer] unspecified G47.00 Insomnia, unspecified F17.200 Nicotine dependence, unspecified, uncomplicated Office Visit 05/19/2015 3:00p [facility] Mian Nassar F41.9 Anxiety disorder, DIRECT[employer]LE[employer] unspecified F17.200 Nicotine dependence, unspecified, uncomplicated G47.00 Insomnia, unspecified Office Visit 04/21/2015 11:30a [facility] Mian Nassar F17.200 Nicotine dependence, DIRECT[employer] unspecified, uncomplicated F41.9 Anxiety disorder, unspecified Office Visit 03/31/2015 2:15p [facility] Mian Nassar DIRECT[employer]LE[employer] 305.1 Tobacco Use Disorder V70.0 Examination General Medical Routine AT Health Care Facility V72.62 Laboratory Exam Ordered as Part Of Routine General Med Exam 300.00 Anxiety State Unspec 314.00 Attention Deficit Disorder W/O Mention Of Hyperactivity Plan of Treatment Future Appointment(s):12/17/2018 10:30 am - Sudhakar Vargas M.D. at [facility]10/01/2018 - Sudhakar Vargas M.D.L20.9 Atopic dermatitis, unspecifiedComments:SKIN CARE INSTRUCTIONS LOTION OR BABY OIL 2-3 APPLICATION PER DAYUSE MOISTURIZING SOAPAVOID PROLONGED WATER EXPOSUREAVOID USING HOT WATER IN UNDPPWH38.9 Allergic rhinitis, unspecifiedComments:INCREASE PO FLUID USE ANTIHISTAMINE PRN SECOND HAND SMOKING AVOIDANCE SMOKING AKKRUHHLGA40.9 Chronic obstructive pulmonary disease, unspecifiedComments:INCREASE PO FLUIDRESTSMOKING GHYEPUDMCN09.210 Nicotine dependence, cigarettes, uncomplicatedComments:SMOKING CESSATION SLLEJVPRKMHH95.01 Impaired fasting glucoseComments:F/U HGAICFS QAC AN HS PRNLOW GLUCOSE DIETF41.9 Anxiety disorder, unspecifiedComments:COUNCELLING AND REASSURANCE RELAXATION TECHNIQUES DISCUSSEDCOUNSELED RE: STRESSORS IN LIFE AVOID ALLENERGY/HIGH CAFFEINE DRINKS DUR OTDZQROM77.9 Major depressive disorder , recurrent, unspecifiedComments:COUNCELLING AND REASSURANCE RELAXATION TECHNIQUES DISCUSSED COUNSELED RE: STRESSORS IN LIFEG47.00 Insomnia, unspecifiedComments:COUNCELLING AND REASSURANCE RELAXATION TECHNIQUES DISCUSSED COUNSELED RE: STRESSORS IN LIFE TYLENOLPM OR MOTRIN PM PRN DUR CXMRILBB32.0 Attention-deficit hyperactivity disorder, predominantly inatComments: COUNCELLING AND REASSURANCEF/U DIRECTTEACHING ON TIME MANGEMENT AND IMPROVING ORGANIZATIONAL SKILLSDUR AKTGQZOT76.9 Unspecified hemorrhoidsComments: AVOID CONSTIPATOIN INCREASE FIBER IN DIETLAXATIVE PRNLUBRICATE ANAL AREA WITH LOTION PRN FOR WJSBQTDG85.899 Other terminal superintendent (current) drug therapyComments:RX IS GIVEN BY EGSIOAVMVFEYT58.9 Proteinuria, unspecifiedComments:OBSERVEF/U WITH NEPHROLOGY PRNH52.12 Myopia, left eyeComments:USE GLASSES/ CONTACTSF/U WITH JJBCQBPGZDGATX96.618 Other abnormal cytological findings on specimens from cervix uteriComments:F/U PAPF/U WITH FLIGHT DYNAMICIST
[2018-10-22 10:33] VITALS: BP 138/88
--- NOTE | 2018-10-22 11:54 | UC ---
Dental HPI - HPI Summary HPI Summary: 38-year-old female presents with complaints of right lower dental pain and facial swelling for the past 2 days. States she's been evaluated at [facility] for severe dental decay and was referred to an oral surgeon however was unable to keep the appointment as her insurance changed and the surgeon she had been referred to did not take her new insurance. She currently does not have a follow-up appointment and [facility]. She is also reporting a one week history of upper respiratory symptoms including nasal congestion, yellow-green nasal discharge, and productive cough for yellow-green sputum. Denies fever, chills, ear pain, trismus, dysphagia, chest pain, or shortness of breath. - History of Current Complaint Chief Complaint: UCRespiratory Stated Complaint: DENTAL PAIN CHEST CONGESTION COUGH Time Seen by Provider: 10/22/18 11:50 Hx Obtained From: Patient Hx Last Menstrual Period: 10/01/18 Pain Intensity: 7 - Allergies/Home Medications Allergies/Adverse Reactions: Allergies Allergy/AdvReac Type Severity Reaction Status Date / Time No Known Allergies Allergy Verified 10/22/18 10:34 PMH/Surg Hx/FS Hx/Imm Hx Previously Healthy: Yes Psychological History: Anxiety, Depression - Surgical History Surgical History: None Surgery Procedure, Year, and Place: 1998 & 2002, 2014 DILATION CURETTAGE. wisdom teeth, 2010 tubal - Family History Known Family History: Positive: Diabetes - mother, Other - Bipolar disorder and anxiety - biological relations, breast CA Family History: Other is unknown - patient is adopted - Social History Occupation: Employed Full-time Lives: With Family Alcohol Use: Rare Alcohol Amount: 2 times per year Substance Use Type: None Substance Use Comment - Amount & Last Used: last night "smoked my brains out" to cope Smoking Status (MU): Heavy Every Day Tobacco Smoker Type: Cigarettes Amount Used/How Often: 1/2 ppd for20 years Length of Time of Smoking/Using Tobacco: 17 years Have You Smoked in the Last Year: Yes Household Exposure Type: Cigarettes - Immunization History Most Recent Influenza Vaccination: 2013 Most Recent Tetanus Shot: 2013 Most Recent Pneumonia Vaccination: refused Review of Systems All Other Systems Reviewed And Are Negative: Yes Constitutional: Negative: Fever, Chills Skin: Negative: Rash Eyes: Negative: Drainage, Eye Redness ENT: Positive: Nasal Discharge, Sinus Congestion, Sinus Pain/Tenderness. Negative: Sore Throat, Ear Ache Respiratory: Positive: Cough. Negative: Shortness Of Breath Cardiovascular: Negative: Palpitations, Chest Pain Gastrointestinal: Negative: Abdominal Pain, Vomiting, Diarrhea, Nausea Genitourinary: Positive: Negative Musculoskeletal: Positive: Negative Neurological: Positive: Negative Is Patient Immunocompromised?: No Physical Exam - Summary Physical Exam Summary: GENERAL APPEARANCE: Well developed, well nourished, alert and cooperative, and appears to be in no acute distress. HEAD: Mild facial swelling of the right maxilla. EYES: Conjunctiva clear. No drainage. Vision is grossly intact. EARS: External auditory canals and tympanic membranes clear, hearing grossly intact. NOSE: Mild-moderate nasal congestion. THROAT: Mild pharyngeal erythema with cobblestoning. No tonsilar inflammation, swelling, exudate, or lesions. Uvula midline. Multiple teeth with severe decay throughout. There is gingival erythema and swelling noted around several teeth on the right lower jaw without induration, fluctuance, or drainage noted. No trismus. NECK: Neck supple, non-tender without lymphadenopathy. CARDIAC: Normal S1 and S2. No S3, S4 or murmurs. Rhythm is regular. There is no peripheral edema, cyanosis or pallor. Extremities are warm and well perfused. Capillary refill is less than 2 seconds. Peripheral pulses intact. LUNGS: Clear to auscultation without rales, rhonchi, wheezing or diminished breath sounds. Loose, non-productive cough. ABDOMEN: Positive bowel sounds. Soft, nondistended, nontender. No guarding or rebound. No masses or hepatosplenomegally. MUSKULOSKELETAL: ROM intact to all extremities. No joint erythema or tenderness. Normal muscular development. Normal gait. SKIN: Skin normal color, texture and turgor with no lesions or eruptions. Triage Information Reviewed: Yes Vital Signs: Initial Vital Signs Temp 98 F 10/22/18 10:31 Pulse 102 10/22/18 10:31 Resp 22 10/22/18 10:31 BP 138/88 10/22/18 10:31 Pulse Ox 100 10/22/18 10:31 Vital Signs Reviewed: Yes Dental Complaint Course/Dx - Course Course Of Treatment: 38-year-old female presents with complaints of right lower dental pain and facial swelling for the past 2 days. States she's been evaluated at [facility] for severe dental decay and was referred to an oral surgeon however was unable to keep the appointment as her insurance changed and the surgeon she had been referred to did not take her new insurance. She currently does not have a follow-up appointment and [facility]. She is also reporting a one week history of upper respiratory symptoms including nasal congestion, yellow-green nasal discharge, and productive cough for yellow-green sputum. Denies fever, chills, ear pain, trismus, dysphagia, chest pain, or shortness of breath. Afebrile. VSS. Exam remarkable for multiple teeth with severe decay throughout. There is gingival erythema and swelling noted around several teeth on the right lower jaw without induration, fluctuance, or drainage noted. No trismus. Mild-moderate nasal congestion, pharyngeal erythema with cobblestoning, and a loose non-productive cough. Will start he on Augmentin 875 mg twice a day for 10 days to treat for dental infection but this will also cover for any secondary bacterial infection for her URI. She was given naproxen 500 mg BID for pain. Recommending symptomatic treatment for her URI. She is schedule an appointment with the dentist at the next available appointment and follow up with her PCP in 7 days if no improvement in her URI symptoms. Anticipatory guidance and warning symptoms reviewed with patient. Verbalizes understanding and agrees with POC. - Differential Dx/Diagnosis Differential Diagnosis/Dx: Dental Abscess, Dental Caries, Fractured Tooth, Odontogenic Pain, Peridontic Disease, Pharyngitis, Tonsillitis, Other - URI Provider Diagnosis: Pain, dental, URI (upper respiratory infection) Discharge - Sign-Out/Discharge Documenting (check all that apply): Patient Departure All imaging exams completed and their final reports reviewed: No Studies - Discharge Plan Condition: Stable Disposition: HOME Prescriptions: Amoxicillin/Clavulanate TAB* [Augmentin TAB 875*] 875 mg PO BID #20 tab Naproxen [Naproxen 500 mg tab] 500 mg PO BID PRN #30 tablet PRN Reason: Pain (Dental) Patient Education Materials: Upper Respiratory Infection (ED), Toothache (ED) Referrals: Sudhakar Vargas MD [Primary Care Provider] - 7 Days Additional Instructions: Start Augmentin 875 mg 1 tab twice a day for 10 days. Take with food to avoid upset stomach. Be sure to take the entire course even if you are feeling better. This antibiotic will also treat and bacterial upper respiratory infection. Take naproxen 500 mg 1 tab every 12 hours with food as needed for pain. You may also take acetaminophen (Tylenol) according to directions but you should avoid using ibuprofen (Advil, Motrin) as this is similar to the naproxen. Be sure to rinse your mouth out with a warm salt water solution after every time you eat to remove any debris. Make an appointment with your dentist at next available appointment. For your upper respiratory infection symptoms: Get plenty of rest. Drink plenty of fluids. Use a saline rinse kit such as Neti Pot or NeilMed at least twice a day to help thin secretions and promote drainage of the sinuses. Use an over the counter decongestant such as Sudafed according to directions as needed for congestion. Use salt water gargles several times a day if you have a sore throat. You may also use Chloraseptic spray or Cepacol lonzenges according to directions which contain a numbing medication and can provide some temporary relief from your sore throat. Follow up with your primary care provider in 7 days if symptoms persist. Seek immediate medical attention in the emergency room if you have fever greater than 100.5 F despite taking acetaminophen or ibuprofen, have chest pain , difficulty breathing, you cannot open or close your mouth, you are unable to swallow, or have any worsening of symptoms. - Billing Disposition and Condition Condition: STABLE Disposition: Home
== END 2018-10-22 12:15 | disposition home or self-care (01) ==
LOC: UCEAST 10:12
DX: K08.89 Other specified disorders of teeth and supporting structures (principal); J06.9 Acute upper respiratory infection, unspecified; K04.7 Periapical abscess without sinus; F17.210 Nicotine dependence, cigarettes, uncomplicated
CPT/HCPCS: 99212; G0463

== ENCOUNTER 2018-10-30 12:16 | Emergency (ER) | payer OTHER ==
[2018-10-30] MEDS ORDERED: Ketorolac INJ* 30 MG/ML 1 ML VIAL IV PUSH ONE (13:20)
[2018-10-30] MEDS ORDERED: NS 0.9% 1000 ML** 1,000 ML IV ONE (13:20)
[2018-10-30] MEDS ORDERED: Ondansetron INJ* 2 MG/ML VIAL IV ONE (13:20)
--- NOTE | 2018-10-30 13:38 | ED ---
Abdominal Pain/Female - HPI Summary HPI Summary: 38 year old female presents to the emergency department for evaluation of lower abdominal pain. This problem has been present since 10am this morning and is constant. Pt describes the pain as dull and achy diffused along her lower abdomen with intermittent sharp, stabbing pain on the LLQ. Movement makes the pain worse. Pt reports associated N/V. She denies fever, chills, diarrhea, constipation, blood in her stool, blood in her vomit, chest pain, SOB, vaginal discharge, and dysuria. Pt has had a cough and some chest congestion for the past 1-2 weeks. Pt had her tubes tired 1 year ago. She had 10 pregnancies and 4 live births. Her LMP was 10/01/18. She has a history of kidney stones and UTIs and states this pain is different than the kidney stones pain. Has hx of PCOS. Feels similar to ovarian cyst in the past. is passing gas. - History of Current Complaint Chief Complaint: EDNauseaVomitDiarrh Stated Complaint: ABD PAIN PER PT Time Seen by Provider: 10/30/18 12:58 Hx Last Menstrual Period: 10/01/18 Pain Intensity: 5 Allergies/Adverse Reactions: Allergies Allergy/AdvReac Type Severity Reaction Status Date / Time No Known Allergies Allergy Verified 10/30/18 12:18 Home Medications: Home Medications ALPRAZolam [Xanax] 1 mg PO BID PRN 10/30/18 [History Confirmed 10/30/18] Dextroamphetamine/Amphetamine [Adderall 20 mg Tablet] 1 tab PO BID 10/30/18 [ History Confirmed 10/30/18] Escitalopram * [Lexapro *] 20 mg PO DAILY 10/30/18 [History Confirmed 10/30/18] Norethindrone Acetate [Norethindrone AC ([place])] 5 mg PO DAILY 10/30/18 [ History Confirmed 10/30/18] PMH/Surg Hx/FS Hx/Imm Hx Endocrine/Hematology History: Reports: Hx Anemia - A TEENAGER and Denies: Hx Diabetes, Hx Thyroid Disease Cardiovascular History: Denies: Hx Hypertension, Other Cardiovascular Problems/Disorders Respiratory History: Denies: Hx Asthma, Hx Chronic Obstructive Pulmonary Disease (COPD), Other Respiratory Problems/Disorders GI History: Denies: Hx Ulcer, Other GI Disorders History: Reports: Hx Kidney Infection, Hx Kidney Stones - HX IN THE PAST, Other Problems/Disorders - hx uti Sensory History: Reports: Hx Contacts or Glasses - GLASSES, BUT DOES NOT WEAR Denies: Hx Hearing Aid Opthamlomology History: Reports: Hx Contacts or Glasses - GLASSES, BUT DOES NOT WEAR Neurological History: Reports: Other Neuro Impairments/Disorders - add Psychiatric History: Reports: Hx Anxiety - on meds, Hx Depression - on meds, Hx Panic Disorder, Other Psychiatric Issues/Disorders - depression and suicidal ideation Denies: Hx Eating Disorder, Hx of Violent Episodes Against Others - Cancer History Hx Chemotherapy: No Hx Radiation Therapy: No - Surgical History Surgery Procedure, Year, and Place: 1998 & 2002, 2014 DILATION CURETTAGE. wisdom teeth, 2010 tubal Hx Anesthesia Reactions: Yes - difficulty to wake up - Immunization History Date of Tetanus Vaccine: Unsure Date of Influenza Vaccine: no Infectious Disease History: No Infectious Disease History: Denies: Hx Hepatitis, Hx Human Immunodeficiency Virus (HIV), History Other Infectious Disease, Traveled Outside the [place] in Last 30 Days - Family History Known Family History: Positive: None, Diabetes - mother, Other - Bipolar disorder and anxiety - biological relations, breast CA Family History: Other is unknown - patient is adopted - Social History Alcohol Use: Rare Alcohol Amount: 2 times per year Substance Use Type: Reports: None Substance Use Comment - Amount & Last Used: last night "smoked my brains out" to cope Hx Tobacco Use: Yes Smoking Status (MU): Heavy Every Day Tobacco Smoker Type: Cigarettes Amount Used/How Often: 1/2 ppd for20 years Length of Time of Smoking/Using Tobacco: 17 years Have You Smoked in the Last Year: Yes Review of Systems Positive: Chills, Fatigue. Negative: Fever Negative: Palpitations, Chest Pain Positive: Cough. Negative: Shortness Of Breath Positive: Abdominal Pain, Vomiting, Nausea. Negative: Diarrhea Positive: no symptoms reported. Negative: burning, dysuria, discharge, frequency, flank pain, urgency Negative: Headache, Weakness, Paresthesia, Numbness, Syncope All Other Systems Reviewed And Are Negative: Yes Physical Exam Triage Information Reviewed: Yes Vital Signs On Initial Exam: Initial Vitals Temp Pulse Resp BP Pulse Ox 98.2 F 109 20 144/99 100 10/30/18 12:18 10/30/18 12:18 10/30/18 12:18 10/30/18 12:18 10/30/18 12:18 Vital Signs Reviewed: Yes Appearance: Positive: Well-Appearing, Well-Nourished, Pain Distress Skin: Positive: Warm, Skin Color Reflects Adequate Perfusion, Dry Head/Face: Positive: Normal Head/Face Inspection Eyes: Positive: Normal, EOMI ENT: Positive: Hearing grossly normal, Pharynx normal Neck: Positive: Supple, Nontender Respiratory/Lung Sounds: Positive: Clear to Auscultation, Breath Sounds Present Cardiovascular: Positive: RRR, Pulses are Symmetrical in both Upper and Lower Extremities, Tachycardia Abdomen Description: Positive: No Organomegaly, Soft, Other: - Point tenderness to the LLQ. No guarding, no rigidity. No CVA tenderness. Negative Rodriguez's. Bowel Sounds: Positive: Present Neurological: Positive: Sensory/Motor Intact, Alert, Oriented to Person Place, Time Psychiatric: Positive: Normal Diagnostics - Vital Signs Vital Signs Temp Pulse Resp BP Pulse Ox 10/30/18 12:18 98.2 F 109 20 144/99 100 - Laboratory Result Diagrams: 10/30/18 13:29 10/30/18 13:29 Lab Statement: Any lab studies that have been ordered have been reviewed, and results considered in the medical decision making process. - CT abd CT Interpretation Completed By: Radiologist Summary of CT Findings: IMPRESSION: 1. Normal appendix. 2. There is no CT evidence of obstructive uropathy or identification of renal calculi. 3. The left ovarian vein is mildly enlarged and communicates with minimally dilated left. periuterine veins. In the correct clinical setting this appearance could be consistent. with pelvic congestion syndrome (PCS). PCS is characterized clinically by intermittent,. gravity dependent abdominal pelvic pain, superficial varicose veins of the lower. extremities and pelvis, nonspecific gastrointestinal symptoms and dyspareunia. 4. Homogenous hypoattenuation the liver could be seen in the setting of hepatic steatosis. - Ultrasound No standard instances Ultrasound Interpretation Completed By: Radiologist Summary of Ultrasound Findings: IMPRESSION: 1. NO SONOGRAPHIC FEATURES OF TORSION. PLEASE NOTE THAT PARTIAL OR INTERMITTENT TORSION. MAY BE SONOGRAPHICALLY NORMAL. 2. PROMINENCE OF THE PELVIC VASCULATURE, NONSPECIFIC BUT CAN BE ASSOCIATED WITH PELVIC. CONGESTION SYNDROME IN THE CORRECT CLINICAL SETTING. Re-Evaluation - Re-Evaluation First Eval Comment: discussed ultrasound results Second Eval Re-Evaluation Time: 16:04 Comment: patient states wants rickx not ativan Abdominal Pain Fem Course/Dx - Course Course Of Treatment: 38 year old female presents to the emergency department for evaluation of lower abdominal pain. This problem has been present since 10am this morning and is constant. Pt describes the pain as dull and achy diffused along her lower abdomen with intermittent sharp, stabbing pain on the LLQ. Movement makes the pain worse. Pt reports associated N/V. She denies fever , chills, diarrhea, constipation, blood in her stool, blood in her vomit, chest pain, SOB, vaginal discharge, and dysuria. Pt has had a cough and some chest congestion for the past 1-2 weeks. Pt had her tubes tired 1 year ago. She had 10 pregnancies and 4 live births. Her LMP was 10/01/18. She has a history of kidney stones and UTIs and states this pain is different than the kidney stones pain. Has hx of PCOS. Feels similar to ovarian cyst in the past. is passing gas. on exam has tenderness llq. wbc 11. ultrasound pelvic congestion syndrome. CT shows no acute findings. gave zofran for nausea. patient understand and agrees with plan. - Diagnoses Differential Diagnosis: Positive: Diverticulitis, Urinary Tract Infection, Other - colitis Provider Diagnoses: Abdominal pain, Vomiting Discharge - Sign-Out/Discharge Documenting (check all that apply): Patient Departure Patient Received Moderate/Deep Sedation with Procedure: No - Discharge Plan Condition: Good Disposition: HOME Prescriptions: Ondansetron ODT TAB* [Zofran 4 MG Odt TAB*] 4 mg PO Q6H PRN #16 tab.odt PRN Reason: Nausea Patient Education Materials: Abdominal Pain (ED) Referrals: Sudhakar Vargas MD [Primary Care Provider] - Alex Kramer MD [Medical Doctor] - Additional Instructions: Can take Zofran every 6 hours as needed for nausea Drink small amounts of fluid as tolerated When able to eat follow BRAT diet: Bananas, rice, applesauce, toast Take ibuprofen or Tylenol for pain as needed every 6 hours Follow up with primary within 5 days follow up with dr parra about pelvic congestion syndrome Return to ED if develop any new or worsening symptoms - Billing Disposition and Condition Condition: GOOD Disposition: Home
[2018-10-30] MEDS ORDERED: Morphine 4 MG/ML VIAL (1 ml) 4 MG/ML VIAL IV ONE (13:45)
[2018-10-30 13:48] LABS: ABS Basophils 0 10^3/ul (0-0.2); ABS Eosinophils 0.1 10^3/ul (0-0.6); ABS Lymphocytes 0.8 10^3/ul (1.0-4.8); ABS Monocytes 0.4 10^3/ul (0-0.8); ABS Neutrophils 9.7 10^3/ul (1.5-7.7); ABS Nucleated RBC 0 10^3/ul; Eosinophil % 1.1 %; Hematocrit 42 % (33-41); Hemoglobin 13.4 g/dL (12.0-16.0); Lymphocyte % 7.4 %; Mean Corpuscular HGB Conc 32 g/dL (31-36); Mean Corpuscular Hemoglobin 27 pg (27-31); Mean Corpuscular Volume 83 fL (80-97); Mean Platelet Volume 7.3 fL (7.4-10.4); Nucleated Red Blood Cells % 0; Platelet Count 326 10^3/uL (150-450); Red Blood Count 5.03 10^6 /uL (3.70-4.87); Red Cell Distribution Width 18 % (10.5-15); White Blood Count 11.1 10^3/uL (3.5-10.8)
[2018-10-30] MEDS ORDERED: LORazepam INJ* 2 MG/ML 1 ML VIAL IV PUSH ONE ×2 (13:59→15:54)
[2018-10-30 14:07] LABS: ALT 16 U/L (7-52); AST 15 U/L (13-39); Albumin/Globulin Ratio 1.3 (1-3); Alkaline Phosphatase 134 U/L (34-104); Anion Gap 4 mmol/L (2-11); BUN/Creatinine Ratio 16.2 (8-20); Blood Urea Nitrogen 12 mg/dL (6-24); C Reactive Protein 4.52 mg/L (<8.01); CO2 Carbon Dioxide 27 mmol/L (22-32); Calcium 8.7 mg/dL (8.6-10.3); Chloride 104 mmol/L (101-111); EGFR African American 106.9 (>60); EGFR Non-African American 88.3 (>60); Glucose 104 mg/dL (70-100); Potassium 4.1 mmol/L (3.5-5.0); Sodium 135 mmol/L (135-145)
[2018-10-30 14:12] LABS: HCG Pregnancy < 0.60 mIU/mL
[2018-10-30 14:34] LABS: Urine Appearance Clear; Urine Bilirubin Negative (Negative); Urine Blood Negative (Negative); Urine Color Yellow; Urine Glucose Negative (Negative); Urine Ketones Negative (Negative); Urine Nitrite Negative (Negative); Urine Protein Negative (Negative); Urine Specific Gravity 1.011 (1.010-1.030); Urine Urobilinogen Negative (Negative)
[2018-10-30] MEDS ORDERED: Iohexol 300* (CONTRAST) 10 ML SDV IV ONE (14:45)
[2018-10-30] MEDS ORDERED: ALPRAZolam TAB* 0.5 MG PO ONE (16:04)
[2018-10-30] MEDS ORDERED: Nicotine Inhaler* 10 MG AMP INH ONE (17:19)
[2018-10-30] MEDS ORDERED: Mouth Piece, Nicotine* 1 EACH CARTRIDGE ONE (17:31)
[2018-10-30] MEDS ORDERED: Mouth Piece, Nicotine* 1 EACH CARTRIDGE INH ONE (18:00)
[2018-10-30 18:31] VITALS: BP 119/85
== END 2018-10-30 18:32 | disposition home or self-care (01) ==
LOC: ED 12:16
DX: R10.30 Lower abdominal pain, unspecified (principal); R11.10 Vomiting, unspecified; F17.210 Nicotine dependence, cigarettes, uncomplicated; Z87.442 Personal history of urinary calculi
CPT/HCPCS: 36415; 74177; 76830; 80053; 81003; 83605; 83690; 84702; 85025; 86140; 96361; 96374; 96375; 96376; 99283; A9270-GY; J1885; J2060; J2270; J2405; Q9967

== ENCOUNTER 2019-01-12 00:37 | Emergency (ER) | payer OTHER ==
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
[2019-01-12] MEDS ORDERED: Ibuprofen TAB* 800 MG PO ONE (04:30)
[2019-01-12 05:11] VITALS: BP 136/86
== END 2019-01-12 05:10 | disposition home or self-care (01) ==
LOC: ED 00:37
DX: F17.210 Nicotine dependence, cigarettes, uncomplicated (principal); S62.396A Other fracture of fifth metacarpal bone, right hand, initial encounter for closed fracture; W51.XXXA Accidental striking against or bumped into by another person, initial encounter
CPT/HCPCS: 99282; A9270-GY

== ENCOUNTER 2019-11-08 15:13 | Emergency (ER) | payer OTHER ==
--- OUTSIDE RECORDS SUMMARY | 2019-11-08 15:17 | XMS REPORT | Continuity of Care Document ---
:1980 External Reference #:[id number] Author Name Sudhakar Vargas M.D. 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 Cream as needed Lexapro Take 1 Tablet By 90tabs F41.9 Sudhakar Vargas, 01/17/2018 20mg Tablets Mouth Every Day M.D. F33.9 Amphetamine-Dextroamphetamine 1 tab by 60tabs F90.0 Sudhakar Vargas 2017 20mg Tablets mouth twice a M., M.D. day Alprazolam 1mg 1/2-1 tab by 30tabs F41.9 Sudhakar Vargas 12/08/2015 Tablets mouth at M., M.D. bedtime as needed G47.00 History Medications Azithromycin 1 by mouth 7tabs J20.9 Sudhakar Vargas, 10/13/2019 - 500mg every day M.DYaneth 10/14/2019 Tablets Immunizations CPT Code Status Date Vaccine Lot # [id number] Refused 05/19/2015 Flu Vaccine Vital Signs Date [...] Rate 90 /min Respiratory Rate 16 /min Results Description No Information Available Procedures Description No Information Available Medical Devices Description No Information Available Encounters Type Date Location Provider Dx Diagnosis Office Visit 10/13/2019 Sudhakar [place], J20.9 Acute bronchitis, 10:30a M.DYaneth unspecified J01.40 Acute pansinusitis, unspecified L20.9 Atopic dermatitis, unspecified J30.9 Allergic rhinitis, unspecified J44.9 Chronic obstructive pulmonary disease, unspecified F17.210 Nicotine dependence, cigarettes, uncomplicated R73.01 Impaired fasting glucose F41.9 Anxiety disorder, unspecified F33.9 Major depressive disorder, recurrent, unspecified G47.00 Insomnia, unspecified F90.0 Attn-defct hyperactivity disorder, predom inattentive type K64.9 Unspecified hemorrhoids 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 10/13/2019 J01.40 Acute pansinusitis, unspecified Sudhakar Vargas M.D. 10/13/2019 L20.9 Atopic dermatitis, unspecified Sudhakar Vargas M.D. 10/13/2019 J30.9 Allergic rhinitis, unspecified Sudhakar Vargas M.D. 10/13/2019 J44.9 Chronic obstructive pulmonary disease, Sam, Ahmad M., M.D. unspecified 10/13/2019 F17.210 Nicotine dependence, cigarettes, Sudhakar Vargas M.D. uncomplicated 10/13/2019 R73.01 Impaired fasting glucose Sudhakar Vargas M.D. 10/13/2019 F41.9 Anxiety disorder, unspecified Sudhakar Vargas M.D. 10/13/2019 F33.9 Major depressive disorder, recurrent, Sudhakar Vargas M.D. unspecified 10/13/2019 G47.00 Insomnia, unspecified Sudhakar Vargas M.D. 10/13/2019 F90.0 Attention-deficit hyperactivity disorder, Sudhakar Vargas M.D. predominantly inat 10/13/2019 K64.9 Unspecified hemorrhoids Sudhakar Vargas M.D. 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 10/13/2019 R80.9 Proteinuria, unspecified Sudhakar Vargas M.D. 10/13/2019 H52.12 Myopia, left eye Sudhakar Vargas M.D. 10/13/2019 R87.618 Other abnormal cytological findings on Sudhakar Vargas M.D. specimens from cervix Plan of Treatment 10/13/2019 - Sudhakar Vargas M.D.J20.9 Acute bronchitis, unspecifiedNew Medication:Azithromycin 500 mg - 1 by mouth every dayJ01.40 Acute pansinusitis, kjxtaidqfhtW65.9 Atopic dermatitis, nfngibzsihyI61.9 Allergic rhinitis, oytbplgdixqP47.9 Chronic obstructive pulmonary disease, afazhctkbocG49.210 Nicotine dependence, cigarettes, cmtwukatoikmpO60.01 Impaired fasting kpuvggtU35.9 Anxiety disorder, bhheitcuezqB01.9 Major depressive disorder, recurrent, ljebhatcvdoL22.00 Insomnia, dzvqaphvsuuB12.0 Attention-deficit hyperactivity disorder, predominantly inatK64.9 Unspecified gypddxaoppxB12.899 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
--- NOTE | 2019-11-08 15:30 | UC ---
Respiratory Complaint HPI - HPI Summary HPI Summary: 39-year-old female presents with 3 week history of a non-productive cough. States at onset of symptoms she was running low grade fevers and was having body aches and fatigue however these symptoms resolved after a few days. She was seen by her PCP for symptoms. Tested negative for COVID-19 on 10/15/2019. She completed two 7-day courses of azithromycin prescribed by her PCP for acute bronchitis. Last dose was approximately 10 days ago. Also reports that she had a sore throat from 10/29 to 11/02 that has since resolved. She continues to have a non-productive cough. Her child tested positive for strep and is also being tested for COVID-19. 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 Denies fever, chills, chest pain, SOB, abdominal pain, nausea, vomiting, or diarrhea. - History of Current Complaint Stated Complaint: COUGH Hx Obtained From: Patient Hx Last Menstrual Period: 10/01/18 - Allergies/Home Medications Allergies/Adverse Reactions: Allergies Allergy/AdvReac Type Severity Reaction Status Date / Time No Known Allergies Allergy Verified 11/08/19 15:37 Home Medications: Home Medications ALPRAZolam [Xanax] 1 mg PO BID PRN 10/30/18 [History Confirmed 11/08/19] Dextroamphetamine/Amphetamine [Adderall 20 mg Tablet] 1 tab PO BID 10/30/18 [ History Confirmed 11/08/19] Escitalopram * [Lexapro *] 20 mg PO DAILY 10/30/18 [History Confirmed 11/08/19] PMH/Surg Hx/FS Hx/Imm Hx Psychological History: Anxiety, Depression, Other - ADHD - Surgical History Surgical History: Yes Surgery Procedure, Year, and Place: 1998 & 2002, 2015 DILATION CURETTAGE. wisdom teeth, 2010 tubal - Family History Known Family History: Positive: Diabetes - mother, Other - Bipolar disorder and anxiety - biological relations, breast [place] Family History: Other is unknown - patient is adopted - Social History Occupation: Employed Full-time Lives: With Family Alcohol Use: Rare Alcohol Amount: 2 times per year Substance Use Type: None Substance Use Comment - Amount & Last Used: last night "smoked my brains out" to cope Smoking Status (MU): Heavy Every Day Tobacco Smoker Type: Cigarettes Amount Used/How Often: 1/2 ppd for20 years Length of Time of Smoking/Using Tobacco: 17 years Have You Smoked in the Last Year: Yes Household Exposure Type: Cigarettes - Immunization History Most Recent Influenza Vaccination: 2012 Most Recent Tetanus Shot: 2012 Most Recent Pneumonia Vaccination: refused Review of Systems All Other Systems Reviewed And Are Negative: Yes Constitutional: Positive: Fever, Chills Skin: Negative: Rash Eyes: Negative: Drainage, Eye Redness ENT: Positive: Sore Throat. Negative: Ear Ache, Nasal Discharge, Sinus Congestion, Sinus Pain/Tenderness Respiratory: Positive: Cough. Negative: Shortness Of Breath Cardiovascular: Negative: Chest Pain Gastrointestinal: Negative: Abdominal Pain, Vomiting, Nausea Genitourinary: Positive: Negative Musculoskeletal: Positive: Negative Neurological/Mental Status: Positive: Negative Is Patient Immunocompromised?: No Physical Exam - Summary Physical Exam Summary: Physical exam was limited as her assessment was completed via telemedicine due to concerns for possible COVID-19 infection. Patient did not appear to be in any acute distress and was directly observed by nursing with no concerns reported. Triage Information Reviewed: Yes Vital Signs Reviewed: Yes Respiratory Course/Dx - Course Course Of Treatment: 39-year-old female presents with 3 week history of a non-productive cough. States at onset of symptoms she was running low grade fevers and was having body aches and fatigue however these symptoms resolved after a few days. She was seen by her PCP for symptoms. Tested negative for COVID-19 on 10/15/2019. She completed two 7-day courses of azithromycin prescribed by her PCP for acute bronchitis. Last dose was approximately 10 days ago. Also reports that she had a sore throat from 10/29 to 11/02 that has since resolved. She continues to have a non-productive cough. Her child tested positive for strep and is also being tested for COVID-19. 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 Denies fever, chills, chest pain, SOB, abdominal pain, nausea, vomiting, or diarrhea. Afebrile. Hypertensive and tachycardic however states is feeling very anxious caring for her ill child. Vitals otherwise stable. Physical assessment was limited. Rapid strep test was negative. With the persistent cough and with her child being evaluated for possible COVID-19 infection will retest her at this time. Recommending continued symptomatic treatment at this time. She was counseled to remain on home isolation pending the results of the COVID-19 test. She is to follow up with her PCP as needed. Anticipatory guidance and warning symptoms were reviewed with the patient. Verbalizes understanding and agrees with POC. - Differential Dx/Diagnosis Differential Diagnosis/HQI/PQRI: Bronchitis, Lower Resp Infection, SARS - COVID- 19, Other - pharyngitis Provider Diagnosis: Persistent cough for 3 weeks or longer Discharge ED - Sign-Out/Discharge Documenting (check all that apply): Patient Departure All imaging exams completed and their final reports reviewed: No Studies - Discharge Plan Condition: Stable Disposition: HOME Patient Education Materials: Acute Bronchitis (ED) Forms: COVID-19 Tested & Isolation Referrals: Sudhakar Vargas MD [Primary Care Provider] - If Needed Additional Instructions: The rapid strep test performed in the clinic today was negative. Your history and exam are consistent with acute bronchitis. We have tested you today for a possible COVID-19 infection. It will take 3-5 days to obtain these results. You will need to remain on home isolation until further notice. Please see the information regarding COVID-19 testing and home isolation that was provided to you. Be aware that the cough with bronchitis may persist for 2-3 weeks even after you have been treated. Get plenty of rest. Drink plenty of fluids. Run a cool mist humidifer in your room at night. Take over the counter acetaminophen (Tylenol) or ibuprofen (Advil, Motrin) according to directions as needed for pain or fever. Follow up with your primary care provider as needed. Seek immediate medical attention in the emergency room if you have fever greater than 100.5 F despite taking acetaminophen or ibuprofen, have chest pain , difficulty breathing, or have any worsening of symptoms. - Billing Disposition and Condition Condition: STABLE Disposition: Home - Attestation Statements Provider Attestation: I was available for consult. This patient was seen by the [facility]. The patient was not presented to , seen by or examined by nd -Rory Villafuerte MD
[2019-11-08 15:37] VITALS: BP 183/85
== END 2019-11-08 15:45 | disposition home or self-care (01) ==
LOC: UCEAST 15:13
DX: R05 Cough (principal); Z20.828 Contact with and (suspected) exposure to other viral communicable diseases; F90.9 Attention-deficit hyperactivity disorder, unspecified type; F41.9 Anxiety disorder, unspecified; F32.9 Major depressive disorder, single episode, unspecified; Z79.899 Other long term (current) drug therapy; F17.210 Nicotine dependence, cigarettes, uncomplicated
CPT/HCPCS: 87635; 87651; 99211; G0463; U0003